=== PATIENT | male | born 1960 | race Caucasian/White ===

== ENCOUNTER 2018-11-13 03:57 | Emergency (ER) | payer MEDICAID ==
[~2018-11-13] VITALS: Ht 188 cm; Wt 113.4 kg
[~2018-11-13 03:57] MED LIST: ALB5IS NEB
[2018-11-13 04:48] VITALS: BP 128/75
[2018-11-13] MEDS ORDERED: methylPREDNISolone SOD SUCC 125 MG/2 ML VL IV ONE (05:00)
[2018-11-13] MEDS ORDERED: cefTRIAXone 1GM/50ML D5W 50 ML IV ONE (05:00)
[2018-11-13 05:26] LABS: Basophils # (auto) 0.1 uL; Basophils % (auto) 0.5 % (0.0-2.0); Eosinophils # (auto) 0.5 uL; Eosinophils % (auto) 4.2 % (0.0-7.0); Hematocrit 42.6 % (41.0-53.0); Hemoglobin 14.1 g/dL (13.5-17.5); Lymphocytes # (auto) 1.2 uL; Lymphocytes % (auto) 9.2 % (10.0-50.0); Mean Corpuscular Hemoglobin 29.3 pg (28.0-32.0); Mean Corpuscular Hgb Conc. 33.1 g/dL (32.0-36.0); Mean Corpuscular Volume 88.5 fL (80.0-100.0); Monocytes # (auto) 1.2 uL; Monocytes % (auto) 9.3 % (0.0-12.0); Neutrophils # (auto) 9.9 uL; Neutrophils % (auto) 76.8 % (37.0-80.0); Platelet Count (auto) 257 10^3/uL (140-450); Red Blood Cells 4.81 10^6/uL (4.5-5.90); Red Cell Distribution Width 13.9 % (11.8-14.3); White Blood Cell 12.9 10^3/uL (4.4-10.8)
[2018-11-13 05:37] LABS: Albumin 2.8 g/dL (3.4-5.0); BUN/Creatinine Ratio 13.9; Calcium 7.7 mg/dL (8.5-10.1); Potassium 3.7 mmol/L (3.5-5.1)
[2018-11-13 05:41] LABS: Bilirubin, Total 0.3 mg/dL (0.2-1.0); Total Protein 6.9 g/dL (6.4-8.2)
[2018-11-13] MEDS ORDERED: IPRATROPIUM BROM 0.5 MG/2.5ML INH SOL NEB ONE (06:00)
== END 2018-11-13 06:40 | disposition home or self-care (01) ==
LOC: ER 03:57 → EDBD 03:57 → ER 06:40
DX: J44.9 Chronic obstructive pulmonary disease, unspecified (principal); I27.20 Pulmonary hypertension, unspecified; Z87.891 Personal history of nicotine dependence
CPT/HCPCS: 36415; 71045; 80053; 83880; 84484; 85025; 94640; 96365; 96375; 99284; J0696; J2930; J7644

== ENCOUNTER 2018-12-04 23:49 | Inpatient (IN) | payer MEDICAID | END 2018-12-10 18:50 | disposition home or self-care (01) | LOC: TELE 12-05 04:52 → TELE-WESTW 12-05 15:09 → ER 23:49 | DX: J44.1 Chronic obstructive pulmonary disease with (acute) exacerbation (principal); I27.20 Pulmonary hypertension, unspecified; E44.0 Moderate protein-calorie malnutrition; I11.0 Hypertensive heart disease with heart failure; I50.9 Heart failure, unspecified; R06.03 Acute respiratory distress ==

== ENCOUNTER 2019-11-30 02:49 | Emergency (ER) | payer MEDICAID ==
[~2019-11-30] VITALS: Ht 182.9 cm; Wt 104.3 kg
[~2019-11-30 02:49] MED LIST changes: +FURO40TA4 PO; +IPR002IS NEB; +LEVO250T19 PO
[2019-11-30] MEDS ORDERED: IPRATROPIUM BROM 0.5 MG/2.5ML INH SOL ONE (02:54)
[2019-11-30] MEDS ORDERED: ALBUTEROL SULF 2.5 MG/0.5ML(0.5%) NEB SOLN ONE (02:54)
[2019-11-30] MEDS ORDERED: IPRATROPIUM BROM 0.5 MG/2.5ML INH SOL NEB ONE (03:15)
[2019-11-30] MEDS ORDERED: ALBUTEROL SULF 2.5 MG/0.5ML(0.5%) NEB SOLN NEB ONE (03:15)
[2019-11-30 03:29] LABS: Basophils # (auto) 0.1 10 ^3/uL (0-0.2); Basophils % (auto) 0.8 % (0.0-2.0); Eosinophils # (auto) 0.6 10 ^3/uL (0-0.8); Eosinophils % (auto) 4.4 % (0.0-7.0); Hematocrit 43.3 % (41.0-53.0); Hemoglobin 14.3 g/dL (13.5-17.5); Lymphocytes # (auto) 1.6 10 ^3/uL (0.4-5.4); Lymphocytes % (auto) 12.9 % (10.0-50.0); Mean Corpuscular Hemoglobin 28.9 pg (28.0-32.0); Mean Corpuscular Volume 87.5 fL (80.0-100.0); Monocytes # (auto) 1.2 10 ^3/uL (0-1.3); Monocytes % (auto) 9.2 % (0.0-12.0); Neutrophils # (auto) 9.3 10 ^3/uL (1.6-8.6); Neutrophils % (auto) 72.7 % (37.0-80.0); Nucleated Red Blood Cells % 0.1 %; Platelet Count (auto) 297 10^3/uL (140-450); Red Blood Cells 4.95 10^6/uL (4.5-5.90); Red Cell Distribution Width 13.9 % (11.8-14.3); White Blood Cell 12.8 10^3/uL (4.4-10.8)
[2019-11-30 03:55] LABS: Albumin 2.6 g/dL (3.4-5.0); Anion Gap 2 (5-15); Blood Urea Nitrogen 11 mg/dL (7-18); Calcium 7.7 mg/dL (8.5-10.1); Carbon Dioxide 32 mmol/L (21-32); Chloride 107 mmol/L (98-107); Glucose 106 mg/dL (74-106); Magnesium 2.3 mg/dL (1.6-2.6); Potassium 4.4 mmol/L (3.5-5.1); Sodium 141 mmol/L (136-145)
[2019-11-30] MEDS ORDERED: methylPREDNISolone SOD SUCC 125 MG/2 ML VL IV ONE (04:00)
[2019-11-30 04:02] LABS: Alanine Aminotransferase 17 U/L (16-61); Alkaline Phosphatase 115 U/L (45-117); Aspartate Aminotransferase 15 U/L (15-37); BUN/Creatinine Ratio 12.8; Bilirubin, Total 0.3 mg/dL (0.2-1.0); GFR African American 117 mL/min; GFR Non-African American 97 mL/min
[2019-11-30 09:15] VITALS: BP 107/68
== END 2019-11-30 09:59 | disposition home or self-care (01) ==
LOC: EDBD 02:49 → ER 02:50
DX: J20.9 Acute bronchitis, unspecified (principal); J44.0 Chronic obstructive pulmonary disease with (acute) lower respiratory infection; I10 Essential (primary) hypertension
CPT/HCPCS: 36415; 71045; 80053; 83605; 83735; 83880; 84484; 85025; 87040; 87804; 93005; 94644; 96374; 99285; J2930; J7644

== ENCOUNTER 2020-02-12 08:53 | Inpatient (IN) | payer MEDICAID ==
[~2020-02-12] VITALS: Ht 188 cm; Wt 110.4 kg
[2020-02-12] MEDS ORDERED: methylPREDNISolone SOD SUCC 125 MG/2 ML VL ONE (09:33)
[2020-02-12] MEDS ORDERED: ALBUTEROL SULF 2.5 MG/0.5ML(0.5%) NEB SOLN NEB ONE ×2 (09:45→11:30)
[2020-02-12] MEDS ORDERED: IPRATROPIUM BROM 0.5 MG/2.5ML INH SOL NEB ONE ×2 (09:45→11:30)
[2020-02-12] MEDS ORDERED: methylPREDNISolone SOD SUCC 125 MG/2 ML VL IV ONE (09:45)
[2020-02-12 09:48] LABS: Basophils # (auto) 0.1 10 ^3/uL (0-0.2); Basophils % (auto) 1.1 % (0.0-2.0); Eosinophils # (auto) 0.2 10 ^3/uL (0-0.8); Eosinophils % (auto) 2.1 % (0.0-7.0); Hematocrit 46.9 % (41.0-53.0); Hemoglobin 15.3 g/dL (13.5-17.5); Lymphocytes # (auto) 1.9 10 ^3/uL (0.4-5.4); Lymphocytes % (auto) 18.3 % (10.0-50.0); Mean Corpuscular Hemoglobin 29.5 pg (28.0-32.0); Mean Corpuscular Hgb Conc. 32.6 g/dL (32.0-36.0); Mean Corpuscular Volume 90.3 fL (80.0-100.0); Monocytes # (auto) 0.5 10 ^3/uL (0-1.3); Monocytes % (auto) 4.3 % (0.0-12.0); Neutrophils # (auto) 7.8 10 ^3/uL (1.6-8.6); Neutrophils % (auto) 74.2 % (37.0-80.0); Nucleated Red Blood Cells % 0.1 %; Platelet Count (auto) 289 10^3/uL (140-450); Red Blood Cells 5.19 10^6/uL (4.5-5.90); Red Cell Distribution Width 14.7 % (11.8-14.3); White Blood Cell 10.5 10^3/uL (4.4-10.8)
[2020-02-12 10:03] LABS: INR 1.01 (0.9-1.15); Partial Thromboplastin Time 26.9 sec (23.64-32.05)
[2020-02-12 10:08] LABS: Albumin 2.4 g/dL (3.4-5.0); Anion Gap 6 (5-15); Blood Urea Nitrogen 16 mg/dL (7-18); Calcium 6.6 mg/dL (8.5-10.1); Carbon Dioxide 27 mmol/L (21-32); Chloride 109 mmol/L (98-107); Glucose 94 mg/dL (74-106); Potassium 4.4 mmol/L (3.5-5.1); Sodium 142 mmol/L (136-145)
[2020-02-12 10:10] LABS: Lactic Acid w/Reflex 2.6 mmol/L (0.4-2.0)
[2020-02-12 10:13] LABS: Alanine Aminotransferase 16 U/L (16-61); Alkaline Phosphatase 112 U/L (45-117); Aspartate Aminotransferase 14 U/L (15-37); BUN/Creatinine Ratio 17.4; Bilirubin, Total 0.1 mg/dL (0.2-1.0); GFR African American 109 mL/min; GFR Non-African American 90 mL/min; Total Protein 6.3 g/dL (6.4-8.2)
[2020-02-12] MEDS ORDERED: cefTRIAXone 1GM/50ML D5W 50 ML IV ONE ×2 (11:30→12:15)
[2020-02-12] MEDS ORDERED: AZITHROMYCIN 500MG/ 250ML 250 ML IV ONE (11:30)
[2020-02-12] MEDS ORDERED: NITROGLYCERIN 0.4 MG SL TAB SL PRN (12:00)
[2020-02-12] MEDS ORDERED: ONDANSETRON HCL 4 MG/2 ML VIAL IV PRN (12:00)
[2020-02-12] MEDS ORDERED: MORPHINE SULF INJ 2 MG/ML SYRINGE 1ML IV PRN ×2 (12:00)
[2020-02-12] MEDS ORDERED: hydrALAZINE HCL 20 MG/ML VL IV PRN (12:00)
[2020-02-12] MEDS ORDERED: HYDROcodone-ACET 5/325MG TAB PO PRN (12:00)
[2020-02-12] MEDS ORDERED: ACETAMINOPHEN 500 MG TAB PO PRN (12:00)
[2020-02-12] MEDS ORDERED: methylPREDNISolone SOD SUCC 125 MG/2 ML VL IV SCH ×2 (12:15)
[2020-02-12] MEDS ORDERED: FUROSEMIDE 20 MG/2 ML VIAL IV ONE (12:15)
[2020-02-12] MEDS ORDERED: FAMOTIDINE 20 MG TAB PO ONE (12:15)
--- NOTE | 2020-02-12 13:47 | NUR ---
Telemetry admit from ER: NOEL NEWTON admitted to Telemetry unit after SBAR received. Patient oriented to KURTIS CHURCH, RN primary RN, unit, room, bed, and unit policies regarding patient care and visiting hours. Patient now on continuous telemetry monitoring, tele box # [id number] and telemetry reading on arrival to unit is ST . Patient placed on bedside oxygen 3 LPM, and encouraged to call if they need something. All questions and concerns addressed, patient verbalized understanding.
[2020-02-12 13:50] VITALS: BP 121/85
[2020-02-12] MEDS: ALBUTEROL SULF 2.5 MG/0.5ML(0.5%) NEB SOLN NEB SCH ×3 (13:59→21:54)
[2020-02-12] MEDS: IPRATROPIUM BROM 0.5 MG/2.5ML INH SOL NEB SCH ×3 (13:59→21:54)
[2020-02-12 14:01] VITALS: BP 121/85
--- NOTE | 2020-02-12 15:59 | NUR ---
PATIENT REFUSED FULL SKIN ASSESSMENT. PATIENT EDUCATED ON NEED FOR SKIN ASSESSMENT, PATIENT REFUSED.
[2020-02-12 16:47] VITALS: BP 130/88
--- NOTE | 2020-02-12 19:15 | NUR ---
CLOSING NOTE: Patient resting in bed on 5 LPM NC. No S/S of pain or distress at this time. Care endorsed to NOC RN.
[2020-02-12 21:43] VITALS: BP 146/95
[2020-02-12] MEDS: BUDESONIDE (INHALATION) 0.5 MG/2 ML NEB NEB SCH (21:54)
[2020-02-12] MEDS: methylPREDNISolone SOD SUCC 125 MG/2 ML VL IV SCH (22:08)
--- NOTE | 2020-02-12 23:16 | NUR ---
OPENING NOTE Received report from day shift RN. Patient is A&O X's 4 with no s/s of distress noted and reports no pain. Patient is receiving 5L of humidified O2 via N.C. Patient's O2 saturation is currently between 95-97%. Educated patient on POC and to use call light when in need of assistance and for help ambulating to bathroom. Patient verbalized understanding. Bed is in lowest/locked position with side rails up X's 2 and HOB elevated. Call light is within reach of patient. Bed alarm is on. Will continue care. Addendum: 02/12/20 at 2320 by ADRIAN HOPPER RN RN time of opening note: [id number]
[2020-02-13] MEDS: guaiFENesin-DM 100/10mg/5ml SYR PO PRN ×2 (00:59→18:10)
--- NOTE | 2020-02-13 01:13 | NUR ---
SHORTNESS OF BREATH Patient reporting shortness of breath at this time. It was precipitated when patient sat up on edge of bed to urinate and began to cough a lot. Patient saturation is 95-97% on 5L N.C. When patient begins to cough, O2% decreases to about 92% then will increase back up within a minute. Patient is requesting to remain sitting at edge of bed. Bedside table was placed in front of patient and call light is within reach of patient. Educated patient to call me if needed and to call me before getting up. Patient verbalized understanding. Specimen cup given to patient for sputum sample. Will continue care.
--- NOTE | 2020-02-13 01:25 | NUR ---
REASSESSMENT Patient remains sitting at edge of bed. Patient no longer appears in any distress and demonstrates less coughing at this time. RR is at 20. Patient states that he is good at this time. O2 remaining at 95% and above.
--- NOTE | 2020-02-13 01:41 | NUR ---
ASSESSMENT Patient is now resting in bed with HOB elevated. No distress is seen. Patient's O2 is at 97% and HR at 99. Will continue care.
[2020-02-13 05:00] VITALS: BP 140/99
[2020-02-13 05:36] LABS: Basophils # (auto) 0 10 ^3/uL (0-0.2); Basophils % (auto) 0.1 % (0.0-2.0); Eosinophils # (auto) 0 10 ^3/uL (0-0.8); Hematocrit 49.6 % (41.0-53.0); Hemoglobin 16.7 g/dL (13.5-17.5); Lymphocytes # (auto) 0.7 10 ^3/uL (0.4-5.4); Lymphocytes % (auto) 6.6 % (10.0-50.0); Mean Corpuscular Hemoglobin 30.2 pg (28.0-32.0); Mean Corpuscular Hgb Conc. 33.7 g/dL (32.0-36.0); Mean Corpuscular Volume 89.5 fL (80.0-100.0); Monocytes # (auto) 0.2 10 ^3/uL (0-1.3); Monocytes % (auto) 1.4 % (0.0-12.0); Neutrophils % (auto) 91.9 % (37.0-80.0); Nucleated Red Blood Cells % 0.1 %; Platelet Count (auto) 273 10^3/uL (140-450); Red Blood Cells 5.54 10^6/uL (4.5-5.90); Red Cell Distribution Width 14.7 % (11.8-14.3); White Blood Cell 10.9 10^3/uL (4.4-10.8)
[2020-02-13 05:54] LABS: BUN/Creatinine Ratio 21.6; Calcium 7.5 mg/dL (8.5-10.1); Potassium 4.4 mmol/L (3.5-5.1)
[2020-02-13] MEDS: ALBUTEROL SULF 2.5 MG/0.5ML(0.5%) NEB SOLN NEB SCH ×5 (06:08→22:26)
[2020-02-13] MEDS: IPRATROPIUM BROM 0.5 MG/2.5ML INH SOL NEB SCH ×5 (06:08→22:25)
--- NOTE | 2020-02-13 06:36 | NUR ---
RESPIRATORY CULTURE SENT TO LAB
--- NOTE | 2020-02-13 07:41 | NUR ---
Opening Note Assumed pt care from NOC RN. Pt is a/ox4 with no s/s of distress. Pt is currently sitting upright in bed eating breakfast on 4L via NC. Mild tachypnea noted. Discussed POC with pt and pending pulmonology consult; pt verbalized understanding. Safety measures maintained with call light within reach, bed in lowest position and side rails up. Will continue to monitor.
[2020-02-13] MEDS: cefTRIAXone 1GM/50ML D5W 50 ML IV SCH (08:30)
[2020-02-13 09:00] VITALS: BP 135/87
[2020-02-13] MEDS: AZITHROMYCIN 500MG/ 250ML 250 ML IV SCH (09:08)
[2020-02-13] MEDS: FAMOTIDINE 20 MG TAB PO SCH (09:08)
[2020-02-13] MEDS: methylPREDNISolone SOD SUCC 125 MG/2 ML VL IV SCH (09:08)
[2020-02-13] MEDS: FUROSEMIDE 20 MG/2 ML VIAL IV SCH (09:08)
[2020-02-13] MEDS: BUDESONIDE (INHALATION) 0.5 MG/2 ML NEB NEB SCH ×2 (10:17→22:25)
[2020-02-13 13:00] VITALS: BP 142/92
--- NOTE | 2020-02-13 13:15 | NUR ---
Dr Enrique at Bedside MD to see pt. Discussed POC with pt. No new orders at this time. Will continue to monitor.
[2020-02-13] MEDS ORDERED: methylPREDNISolone SOD SUCC 40 MG/ML VL IV ONE (13:30)
[2020-02-13] MEDS ORDERED: methylPREDNISolone SOD SUCC 125 MG/2 ML VL IV ONE (13:30)
[2020-02-13 16:47] VITALS: BP 129/89
[2020-02-13] MEDS: Ensure HIGH Protein Chocolate 8oz Bottle PO SCH (17:45)
--- NOTE | 2020-02-13 18:04 | NUR ---
Pt Requests Breathing Treatment Pt states that he is having trouble breathing. Pt is currently tachypnea on 4l via NC. Raised pt's HOB to 90 degrees, encouraged deep breathing. Paged RT for scheduled breathing treatment. Will continue to monitor.
--- NOTE | 2020-02-13 19:00 | NUR ---
OPENING NOTE Received report from day shift RN. Patient is currently resting with HOB elevated. No s/s of distress. Patient is receiving 6L O2 via N.C. Will educate patient on POC. Call light is within reach of patient. Bed is in lowest/locked position with side rails up X's 2. Will continue care.
[2020-02-13] MEDS: methylPREDNISolone SOD SUCC 40 MG/ML VL IV SCH (21:33)
[2020-02-13 22:00] VITALS: BP 131/88
[2020-02-14] MEDS: guaiFENesin-DM 100/10mg/5ml SYR PO PRN ×2 (00:52→23:52)
--- NOTE | 2020-02-14 01:41 | NUR ---
SHORTNESS OF BREATH Patient reported some SOB while coughing. Upon assessment, patient was not in any distress and stopped coughing. HOB was up and elevated. Patient encouraged to deep breathe. O2 saturation was at 98% on 6L N.C. Patient reported feeling better. Educated patient to call again if needed. Patient verbalized understanding. Will continue care.
[2020-02-14 05:00] VITALS: BP 133/87
[2020-02-14 05:44] LABS: Basophils # (auto) 0 10 ^3/uL (0-0.2); Basophils % (auto) 0.1 % (0.0-2.0); Eosinophils # (auto) 0 10 ^3/uL (0-0.8); Hematocrit 47.6 % (41.0-53.0); Hemoglobin 15.7 g/dL (13.5-17.5); Lymphocytes # (auto) 0.7 10 ^3/uL (0.4-5.4); Lymphocytes % (auto) 4.4 % (10.0-50.0); Mean Corpuscular Hemoglobin 29.8 pg (28.0-32.0); Mean Corpuscular Hgb Conc. 32.9 g/dL (32.0-36.0); Mean Corpuscular Volume 90.5 fL (80.0-100.0); Monocytes # (auto) 0.3 10 ^3/uL (0-1.3); Monocytes % (auto) 1.9 % (0.0-12.0); Neutrophils # (auto) 14.7 10 ^3/uL (1.6-8.6); Neutrophils % (auto) 93.6 % (37.0-80.0); Nucleated Red Blood Cells % 0.1 %; Platelet Count (auto) 233 10^3/uL (140-450); Red Blood Cells 5.26 10^6/uL (4.5-5.90); Red Cell Distribution Width 14.5 % (11.8-14.3); White Blood Cell 15.7 10^3/uL (4.4-10.8)
[2020-02-14 06:01] LABS: Calcium 7.3 mg/dL (8.5-10.1); Potassium 4.4 mmol/L (3.5-5.1)
[2020-02-14 06:03] LABS: BUN/Creatinine Ratio 31.6
[2020-02-14] MEDS: IPRATROPIUM BROM 0.5 MG/2.5ML INH SOL NEB SCH ×5 (06:31→22:04)
[2020-02-14] MEDS: BUDESONIDE (INHALATION) 0.5 MG/2 ML NEB NEB SCH ×2 (06:32→18:55)
[2020-02-14] MEDS: ALBUTEROL SULF 2.5 MG/0.5ML(0.5%) NEB SOLN NEB SCH ×5 (06:32→22:04)
--- NOTE | 2020-02-14 07:47 | NUR ---
Opening Note Assumed pt care from NOC RN. Pt is a/ox4 with no s/s of distress. Pt is mildly tachypnea, currently on 5L via NC. Raise pt's HOB to 90 degrees and encouraged deep breathing. Discussed POC with pt; pt verbalized understanding. Safety measures maintained with call light within reach, bed in lowest position and side rails up. Will continue to monitor.
[2020-02-14] MEDS: Ensure HIGH Protein Chocolate 8oz Bottle PO SCH ×3 (08:02→17:52)
[2020-02-14] MEDS: cefTRIAXone 1GM/50ML D5W 50 ML IV SCH (08:22)
[2020-02-14 08:45] VITALS: BP 122/79
[2020-02-14] MEDS: methylPREDNISolone SOD SUCC 40 MG/ML VL IV SCH ×2 (09:22→21:26)
[2020-02-14] MEDS: FUROSEMIDE 20 MG/2 ML VIAL IV SCH (09:22)
[2020-02-14] MEDS: AZITHROMYCIN 500MG/ 250ML 250 ML IV SCH (09:23)
[2020-02-14] MEDS: FAMOTIDINE 20 MG TAB PO SCH (09:23)
--- NOTE | 2020-02-14 11:09 | NUR ---
IV Insertion and Removal 20G inserted to pt's R wrist. One attempt made. Clean/sterile technique used. Pt tolerated well. 20G to pt's R AC removed due to infiltration. Catheter was removed intact, site is asymptotic, pressure was applied to site for 3 minutes with gauze. Pt instructed to keep dressing on for 30 minutes.
[2020-02-14 12:34] VITALS: BP 126/79
--- NOTE | 2020-02-14 14:54 | NUR ---
Dr Enrique at Bedside MD to see pt. states that he will order an ABG to see if pt qualifies for home O2. also requests that due to pt's limited transportation, he would need his prescriptions sent to [facility] before d/c. Will notify NOC RN to pass to day RN.
--- NOTE | 2020-02-14 15:06 | NUR ---
D/C Planning Per pt's request and limited access to transportation, please fill prescriptions in [facility] for pt to [place] before d/c.
--- NOTE | 2020-02-14 15:24 | NUR ---
Assessment Patient is a 59-year old male who is alert and oriented. Prior to admission patient lived in a mobile home with a friend and functioned independently. Patient can care for his own ADLs. Advised patient there is a Social Service consult for homeless and transportation. Patient stated he is not homeless and is happy with the life he has. Offered patient with information regarding [employer]. Patient refused resource stating if he must pay for transportation he prefers to walk. Per patient he has no problem walking to his destination. Per patient he will return to his prior living arrangements post discharge and will need a Taxi Voucher. Informed patient he has a right to participate in all discharge planning. Patient verbalized understanding and agreed to discharge plan home. Addendum: 02/14/20 at 1526 by MARIA DEL CARMEN THOMAS Amended: Links added.
[2020-02-14 16:36] VITALS: BP 125/77
--- NOTE | 2020-02-14 18:41 | NUR ---
Shortness of Breath Pt states that he is having difficulty breathing after eating dinner. Raised HOB to high fowlers, pt is currently on 5L via NC at 98%. Paged RT for scheduled breathing treatment. Will continue to monitor.
--- NOTE | 2020-02-14 19:25 | NUR ---
OPENING NOTE Received report from day shift RN. Patient is A&O X's 4 with no s/s of distress and reports no pain. HOB is elevated to high fowlers and is receiving 5L via NC. Educated patient on POC and to use call light when in need of assistance. Patient verbalized understanding. Bed is in lowest/locked position with side rails up X's 2 and call light is within reach of patient. Will continue care.
[2020-02-14 22:00] VITALS: BP 131/94
[2020-02-15 05:20] VITALS: BP 116/87
[2020-02-15 05:50] LABS: Basophils # (auto) 0 10 ^3/uL (0-0.2); Basophils % (auto) 0.2 % (0.0-2.0); Eosinophils # (auto) 0 10 ^3/uL (0-0.8); Hematocrit 46.9 % (41.0-53.0); Hemoglobin 15.5 g/dL (13.5-17.5); Lymphocytes # (auto) 0.6 10 ^3/uL (0.4-5.4); Mean Corpuscular Hemoglobin 29.8 pg (28.0-32.0); Mean Corpuscular Hgb Conc. 33.1 g/dL (32.0-36.0); Mean Corpuscular Volume 90.2 fL (80.0-100.0); Monocytes # (auto) 0.4 10 ^3/uL (0-1.3); Monocytes % (auto) 2.6 % (0.0-12.0); Neutrophils # (auto) 13.9 10 ^3/uL (1.6-8.6); Neutrophils % (auto) 93.2 % (37.0-80.0); Nucleated Red Blood Cells % 0.3 %; Platelet Count (auto) 227 10^3/uL (140-450); Red Blood Cells 5.21 10^6/uL (4.5-5.90); Red Cell Distribution Width 14.4 % (11.8-14.3); White Blood Cell 14.9 10^3/uL (4.4-10.8)
[2020-02-15 06:07] LABS: Potassium 4.4 mmol/L (3.5-5.1)
[2020-02-15 06:18] LABS: BUN/Creatinine Ratio 40.3; Calcium 7.4 mg/dL (8.5-10.1)
[2020-02-15] MEDS: ALBUTEROL SULF 2.5 MG/0.5ML(0.5%) NEB SOLN NEB SCH ×4 (06:32→18:24)
[2020-02-15] MEDS: IPRATROPIUM BROM 0.5 MG/2.5ML INH SOL NEB SCH ×4 (06:32→18:24)
[2020-02-15] MEDS: BUDESONIDE (INHALATION) 0.5 MG/2 ML NEB NEB SCH ×2 (07:29→18:24)
--- NOTE | 2020-02-15 07:39 | NUR ---
OPENING SHIFT NOTE Assumed care of patient. PT is awake and alert. No S/S of distress/SOB. Bed is in low and locked position. Justin light within reach. Instructed on POC and to call for assist PRN, will continue to monitor for changes Q1hr and PRN.
[2020-02-15 09:00] VITALS: BP 131/87
[2020-02-15] MEDS ORDERED: AZITHROMYCIN 250 MG TAB PO SCH (10:00)
[2020-02-15] MEDS: cefTRIAXone 1GM/50ML D5W 50 ML IV SCH (10:11)
[2020-02-15] MEDS: methylPREDNISolone SOD SUCC 40 MG/ML VL IV SCH (10:11)
[2020-02-15] MEDS: Ensure HIGH Protein Chocolate 8oz Bottle PO SCH ×3 (10:11→18:30)
[2020-02-15] MEDS: FAMOTIDINE 20 MG TAB PO SCH (10:11)
[2020-02-15] MEDS: FUROSEMIDE 20 MG/2 ML VIAL IV SCH (10:11)
--- NOTE | 2020-02-15 11:15 | NUR ---
Respiratory note: DR GANT CALLED, AND MADE AWARE OF HOME O2 QUALIFICATION ABG RESULT OF PO2 VALUE 39.7. RN, AND BOTH MADE AWARE. PT PLACED BACK ON 5L NC. SPO2 95% ON 5LNC. WILL CONTINUE TO MONITOR PT.
[2020-02-15 13:00] VITALS: BP 118/79
--- NOTE | 2020-02-15 13:06 | NUR ---
Nutrition Assessment Notes Please refer to link for full assessment notes. Est Energy needs: [id number] kcals (17-20 kcal/kgBW) Est Protein needs: 132-177 gms/day (1.2-1.6 gm/kgBW) d/t respiratory distress Will continue to monitor and reassess prn. Addendum: 02/15/20 at [address] Amended: Links added.
[2020-02-15] MEDS ORDERED: FUROSEMIDE 20 MG/2 ML VIAL IV ONE (13:15)
[2020-02-15] MEDS ORDERED: POTASSIUM CHL 20 Meq TABLET PO ONE (13:15)
[2020-02-15 13:30] VITALS: BP 131/87
--- NOTE | 2020-02-15 14:00 | NUR ---
Respiratory note: PT REFUSED MEDNE[facility] TX. RN MADE AWARE. PT STATED HE WANTS AN ALBUTEROL MDI TO BE ORDERED BY HIS DR. HE STATED THAT HE PREFERS THE MDI, OVER MEDNEB TX. RN IS CALLING DR TO MODIFY ORDER. WILL CONTINUE TO MONITOR PT.
[2020-02-15 14:08] VITALS: BP 131/87
--- NOTE | 2020-02-15 14:22 | NUR ---
PHONED MARIA DEL CARMEN FROM [employer] HEARING OFFICER REGARDING HOME O2 DELIVERY. STATED SHE WOULD LET ME KNOW WHEN THAT IS SET UP. WILL PROCEED WITH DISCHARGE WHEN HOME O2 IS SET.
--- NOTE | 2020-02-15 17:09 | NUR ---
D/C Planning Per SS consult for home O2 and nebulizer. Faxed clinical information to [facility] requesting for equipment to be deliver to bedside and [facility] requesting authorization. Obtain authorization from [facility] [id number]. Per Marina with [facility] ) DME will be deliver to bedside between 17:30-19:00. Informed RN Will.
--- NOTE | 2020-02-15 18:48 | NUR ---
PT AWAITING DELIVERY OF HOME O2 TO HOSPITAL. SS STATED HOME O2 WOULD BE DELIVERED BY 1900. WILL ENDORSE DISCHARGE TO NIGHT NURSE.
--- NOTE | 2020-02-15 19:45 | NUR ---
Spoke with [facility] regarding delivery of Home O2 equipment. She stated that she would talk to her forklift driver and give me a call back.
--- NOTE | 2020-02-15 20:10 | NUR ---
Pts Home o2 equipment delivered and taken to bedside.
--- NOTE | 2020-02-15 20:15 | NUR ---
Called number on taxis voucher for patients ride home. ETA 15 minutes.
--- NOTE | 2020-02-15 20:40 | NUR ---
Patient discharged Teaching packet given to patient. Iv and tele box not present. Instructed patient on how to make follow up appointment. Pt verbalized understanding. Patient wheeled out to taxi via wheelchair. Patient showed no S/S of distress. Patient loaded himself into taxi van. All O2 equipment and pt belongings loaded into van.
== END 2020-02-15 20:40 | disposition home or self-care (01) | DRG 720 ==
LOC: ER 08:53 → EDBD 08:53 → TELE 08:54 → TELE-WESTW 14:20
PROVIDERS: ADMIT Nurse Practitioner Acute Care; ATTEND Internal Medicine
DX: A41.9 Sepsis, unspecified organism (principal); J96.21 Acute and chronic respiratory failure with hypoxia; E44.0 Moderate protein-calorie malnutrition; J18.9 Pneumonia, unspecified organism; I11.0 Hypertensive heart disease with heart failure; E87.2 Acidosis; I27.20 Pulmonary hypertension, unspecified; E83.51 Hypocalcemia; I50.32 Chronic diastolic (congestive) heart failure; J45.902 Unspecified asthma with status asthmaticus; J44.0 Chronic obstructive pulmonary disease with (acute) lower respiratory infection; J44.1 Chronic obstructive pulmonary disease with (acute) exacerbation; E66.9 Obesity, unspecified; Z68.31 Body mass index [BMI] 31.0-31.9, adult; Z79.899 Other long term (current) drug therapy; Z80.0 Family history of malignant neoplasm of digestive organs; Z80.3 Family history of malignant neoplasm of breast; Z80.7 Family history of other malignant neoplasms of lymphoid, hematopoietic and related tissues; Z71.6 Tobacco abuse counseling; F17.210 Nicotine dependence, cigarettes, uncomplicated; E88.09 Other disorders of plasma-protein metabolism, not elsewhere classified
CPT/HCPCS: 36415; 36600; 71045; 80048; 80053; 82805; 83605; 83735; 83880; 84484; 85025; 85610; 85730; 87040; 87070; 87205; 93005; 94640; 96365; 96368; 96375; G0378; J0696

== ENCOUNTER 2020-04-28 02:44 | Inpatient (IN) | payer MEDICAID ==
[~2020-04-28] VITALS: Ht 188 cm; Wt 111.4 kg
[~2020-04-28 02:44] MED LIST changes: -LEVO250T19 PO
[2020-04-28] MEDS ORDERED: DOXYCYCLINE 100MG/250ML 250 ML IV ONE (03:30)
[2020-04-28] MEDS ORDERED: DexAMETHasone SOD PHOS 10MG/1ML VIAL INJ IV ONE (03:30)
[2020-04-28] MEDS ORDERED: ACETAMINOPHEN 500 MG TAB PO ONE (03:30)
[2020-04-28] MEDS ORDERED: SODIUM CHLORIDE 0.9% 500 ML IV ONE (04:00)
[2020-04-28 04:03] LABS: Basophils # (auto) 0.1 10 ^3/uL (0-0.2); Basophils % (auto) 0.8 % (0.0-2.0); Eosinophils # (auto) 0.3 10 ^3/uL (0-0.8); Eosinophils % (auto) 2.2 % (0.0-7.0); Hemoglobin 15.3 g/dL (13.5-17.5); Lymphocytes # (auto) 2.4 10 ^3/uL (0.4-5.4); Lymphocytes % (auto) 17.1 % (10.0-50.0); Mean Corpuscular Hemoglobin 29.4 pg (28.0-32.0); Mean Corpuscular Hgb Conc. 33.2 g/dL (32.0-36.0); Mean Corpuscular Volume 88.4 fL (80.0-100.0); Monocytes # (auto) 1.1 10 ^3/uL (0-1.3); Monocytes % (auto) 7.9 % (0.0-12.0); Neutrophils # (auto) 10.2 10 ^3/uL (1.6-8.6); Nucleated Red Blood Cells % 0.1 %; Platelet Count (auto) 319 10^3/uL (140-450); Red Blood Cells 5.21 10^6/uL (4.5-5.90); Red Cell Distribution Width 13.8 % (11.8-14.3); White Blood Cell 14.2 10^3/uL (4.4-10.8)
[2020-04-28] MEDS ORDERED: IPRATROPIUM BROM 0.5 MG/2.5ML INH SOL NEB ONE (04:15)
[2020-04-28] MEDS ORDERED: ALBUTEROL SULF 2.5 MG/0.5ML(0.5%) NEB SOLN NEB ONE (04:15)
[2020-04-28 04:23] LABS: INR 0.97 (0.9-1.15); Partial Thromboplastin Time 26.3 sec (23.0-31.2)
[2020-04-28 04:26] LABS: Albumin 2.8 g/dL (3.4-5.0); Anion Gap 6 (5-15); BUN/Creatinine Ratio 26.8; Blood Urea Nitrogen 19 mg/dL (7-18); Calcium 7.6 mg/dL (8.5-10.1); Carbon Dioxide 30 mmol/L (21-32); Chloride 104 mmol/L (98-107); GFR African American 147 mL/min; GFR Non-African American 121 mL/min; Glucose 93 mg/dL (74-106); Sodium 140 mmol/L (136-145)
[2020-04-28 04:32] LABS: Alanine Aminotransferase 17 U/L (16-61); Alkaline Phosphatase 115 U/L (45-117); Aspartate Aminotransferase 19 U/L (15-37); Bilirubin, Total 0.3 mg/dL (0.2-1.0); Total Protein 7.2 g/dL (6.4-8.2)
[2020-04-28 04:42] LABS: Lactic Acid w/Reflex 2.1 mmol/L (0.4-2.0)
[2020-04-28] MEDS ORDERED: LORazepam 2MG/ML-1ML VIAL IV ONE (05:00)
[2020-04-28 06:57] VITALS: BP 131/83
[2020-04-28] MEDS ORDERED: MORPHINE SULF INJ 2 MG/ML SYRINGE 1ML IV PRN (07:30)
[2020-04-28] MEDS ORDERED: DOCUSATE SOD 100 MG CAP PO PRN (07:30)
[2020-04-28] MEDS ORDERED: LORazepam 0.5 MG TAB PO PRN (07:30)
[2020-04-28] MEDS ORDERED: HYDROcodone-ACET 5/325MG TAB PO PRN (07:30)
[2020-04-28] MEDS ORDERED: ALBUTEROL SULF 2.5 MG/0.5ML(0.5%) NEB SOLN NEB PRN (07:30)
[2020-04-28] MEDS ORDERED: IPRATROPIUM BROM 0.5 MG/2.5ML INH SOL NEB PRN (07:30)
[2020-04-28] MEDS ORDERED: ONDANSETRON HCL 4 MG/2 ML VIAL IV PRN (07:30)
[2020-04-28] MEDS ORDERED: ACETAMINOPHEN 500 MG TAB PO PRN (07:30)
[2020-04-28] MEDS: DOXYCYCLINE 100 MG TAB/CAP PO SCH ×2 (09:02→22:36)
[2020-04-28] MEDS: ENOXAPARIN SOD 40 MG/0.4 ML SYRINGE SC SCH (09:20)
[2020-04-28] MEDS ORDERED: ZINC SULFATE 220mg CAP or TAB PO SCH (10:00)
[2020-04-28] MEDS ORDERED: DexAMETHasone SOD PHOS 10MG/1ML VIAL INJ IV SCH (10:00)
[2020-04-28] MEDS ORDERED: ASCORBIC ACID 1,000 MG TAB PO SCH (10:00)
[2020-04-28 10:08] VITALS: BP 130/79
[2020-04-28] MEDS ORDERED: ALBUTEROL SULF HFA 90MCG INH 200DOSE IN SCH (14:00)
[2020-04-28 17:00] VITALS: BP 130/82
[2020-04-28 17:31] VITALS: BP 130/82
[2020-04-28] MEDS ORDERED: guaiFENesin-CODEINE Liq 5 ML UD PO PRN (18:00)
[2020-04-28 18:49] LABS: Amphetamine Screen, Urine POSITIVE (NEGATIVE); Barbiturate Scree,Urine NEGATIVE (NEGATIVE); Benzodiazephine Screen, Urine NEGATIVE (NEGATIVE); Cannabinoid Screen, Urine NEGATIVE (NEGATIVE); Cocaine Screen, Urine NEGATIVE (NEGATIVE); Opiate Scree,Urine NEGATIVE (NEGATIVE); Phencyclidine Screen, Urine NEGATIVE (NEGATIVE)
[2020-04-28] MEDS: methylPREDNISolone SOD SUCC 40 MG/ML VL IV SCH (19:15)
[2020-04-28] MEDS: FOLIC ACID 1 MG, MULTIPLE VITAMIN 10 ML, MAGNESIUM SULF SDV 50% 8 MEQ, THIAMINE INJ 100... INJ SCH ×5 (19:24)
[2020-04-28 19:28] LABS: Urine Amorphous Crystal FEW /hpf (None Seen); Urine Bacteria NONE SEEN /hpf (None Seen); Urine Blood Negative /uL (Negative); Urine Mucus FEW (None Seen); Urine Specific Gravity 1.029 (1.001-1.035); Urine WBC 5 /hpf (0 - 3)
[2020-04-28] MEDS: IPRATROPIUM BROM 0.5 MG/2.5ML INH SOL NEB SCH ×2 (19:33→21:57)
[2020-04-28] MEDS: BUDESONIDE (INHALATION) 0.5 MG/2 ML NEB NEB SCH (19:33)
[2020-04-28] MEDS: ALBUTEROL SULF 2.5 MG/0.5ML(0.5%) NEB SOLN NEB SCH ×2 (19:33→21:57)
[2020-04-28 22:00] VITALS: BP 122/87
[2020-04-28] MEDS: FAMOTIDINE 20 MG TAB PO SCH (22:36)
[2020-04-29] MEDS: methylPREDNISolone SOD SUCC 40 MG/ML VL IV SCH ×5 (00:17→23:11)
[2020-04-29] MEDS: IPRATROPIUM BROM 0.5 MG/2.5ML INH SOL NEB SCH ×6 (02:00→22:26)
[2020-04-29 05:00] VITALS: BP 117/80
[2020-04-29] MEDS: ALBUTEROL SULF 2.5 MG/0.5ML(0.5%) NEB SOLN NEB SCH ×5 (06:00→22:26)
[2020-04-29 09:00] VITALS: BP 113/72
[2020-04-29] MEDS: ENOXAPARIN SOD 40 MG/0.4 ML SYRINGE SC SCH (10:03)
[2020-04-29] MEDS: DOXYCYCLINE 100 MG TAB/CAP PO SCH ×2 (10:03→21:24)
[2020-04-29] MEDS: FAMOTIDINE 20 MG TAB PO SCH ×2 (10:03→21:24)
[2020-04-29 13:00] VITALS: BP 137/71
[2020-04-29] MEDS: FOLIC ACID 1 MG, MULTIPLE VITAMIN 10 ML, MAGNESIUM SULF SDV 50% 8 MEQ, THIAMINE INJ 100... INJ SCH ×5 (13:43)
[2020-04-29] MEDS: BUDESONIDE (INHALATION) 0.5 MG/2 ML NEB NEB SCH ×2 (16:15→22:26)
[2020-04-29 17:00] VITALS: BP 96/60
[2020-04-29 22:00] VITALS: BP 114/76
[2020-04-30] MEDS: methylPREDNISolone SOD SUCC 40 MG/ML VL IV SCH ×3 (05:24→18:06)
[2020-04-30] MEDS: BUDESONIDE (INHALATION) 0.5 MG/2 ML NEB NEB SCH (06:23)
[2020-04-30] MEDS: ALBUTEROL SULF 2.5 MG/0.5ML(0.5%) NEB SOLN NEB SCH ×4 (06:23→18:25)
[2020-04-30] MEDS: IPRATROPIUM BROM 0.5 MG/2.5ML INH SOL NEB SCH ×4 (06:23→18:25)
[2020-04-30 06:26] VITALS: BP 110/69
[2020-04-30 07:02] LABS: Basophils # (auto) 0 10 ^3/uL (0-0.2); Basophils % (auto) 0.1 % (0.0-2.0); Eosinophils # (auto) 0 10 ^3/uL (0-0.8); Hematocrit 44.1 % (41.0-53.0); Hemoglobin 14.3 g/dL (13.5-17.5); Lymphocytes # (auto) 0.8 10 ^3/uL (0.4-5.4); Lymphocytes % (auto) 5.2 % (10.0-50.0); Mean Corpuscular Hemoglobin 29.3 pg (28.0-32.0); Mean Corpuscular Hgb Conc. 32.4 g/dL (32.0-36.0); Mean Corpuscular Volume 90.2 fL (80.0-100.0); Monocytes # (auto) 0.5 10 ^3/uL (0-1.3); Monocytes % (auto) 3.6 % (0.0-12.0); Neutrophils # (auto) 13.5 10 ^3/uL (1.6-8.6); Neutrophils % (auto) 91.1 % (37.0-80.0); Platelet Count (auto) 260 10^3/uL (140-450); Red Blood Cells 4.89 10^6/uL (4.5-5.90); White Blood Cell 14.8 10^3/uL (4.4-10.8)
[2020-04-30 07:41] LABS: Potassium 4.5 mmol/L (3.5-5.1)
[2020-04-30 07:50] LABS: BUN/Creatinine Ratio 27.1; Calcium 7.6 mg/dL (8.5-10.1)
[2020-04-30 08:30] VITALS: BP 119/73
[2020-04-30 09:00] VITALS: BP 119/73
[2020-04-30] MEDS: FAMOTIDINE 20 MG TAB PO SCH (09:48)
[2020-04-30] MEDS: DOXYCYCLINE 100 MG TAB/CAP PO SCH (09:48)
[2020-04-30] MEDS: ENOXAPARIN SOD 40 MG/0.4 ML SYRINGE SC SCH (12:47)
[2020-04-30] MEDS: FOLIC ACID 1 MG, MULTIPLE VITAMIN 10 ML, MAGNESIUM SULF SDV 50% 8 MEQ, THIAMINE INJ 100... INJ SCH ×5 (12:58)
[2020-04-30 13:00] VITALS: BP 109/77
[2020-04-30] MEDS ORDERED: BUDE0.5S IN (16:11)
[2020-04-30] MEDS ORDERED: FAMO-12 PO (16:11)
[2020-04-30] MEDS ORDERED: PRED20TA2 PO (16:11)
[2020-04-30] MEDS ORDERED: DOX100T PO (16:11)
[2020-04-30] MEDS ORDERED: IPRA0.00 IN (16:11)
[2020-04-30 16:25] VITALS: BP 109/73
[2020-04-30 17:00] VITALS: BP 118/72
== END 2020-04-30 19:15 | disposition home or self-care (01) | DRG 133 ==
LOC: EDBD 02:44 → ER 02:44 → OVERFLOW 02:45 → CENTRAL 14:15
PROVIDERS: ADMIT Hospitalist; ATTEND Hospitalist
PROC: 5A09357 Assistance with Respiratory Ventilation, Less than 24 Consecutive Hours, Continuous Positive Airway Pressure (ICD-10-PCS; 2020-04-28)
PROC: 5A09357 Assistance with Respiratory Ventilation, Less than 24 Consecutive Hours, Continuous Positive Airway Pressure (ICD-10-PCS; principal; 2020-04-29)
DX: J96.21 Acute and chronic respiratory failure with hypoxia (principal); J44.1 Chronic obstructive pulmonary disease with (acute) exacerbation; I50.9 Heart failure, unspecified; J18.9 Pneumonia, unspecified organism; J20.9 Acute bronchitis, unspecified; I11.0 Hypertensive heart disease with heart failure; J44.0 Chronic obstructive pulmonary disease with (acute) lower respiratory infection; E66.9 Obesity, unspecified; J45.902 Unspecified asthma with status asthmaticus; J98.11 Atelectasis; F15.10 Other stimulant abuse, uncomplicated; F10.129 Alcohol abuse with intoxication, unspecified; Z68.31 Body mass index [BMI] 31.0-31.9, adult; Z79.899 Other long term (current) drug therapy; Z80.0 Family history of malignant neoplasm of digestive organs; Z80.3 Family history of malignant neoplasm of breast; Z80.42 Family history of malignant neoplasm of prostate; Z80.7 Family history of other malignant neoplasms of lymphoid, hematopoietic and related tissues; Z99.81 Dependence on supplemental oxygen; Z87.891 Personal history of nicotine dependence; Z80.6 Family history of leukemia; R65.10 Systemic inflammatory response syndrome (SIRS) of non-infectious origin without acute organ dysfunction; Z20.828 Contact with and (suspected) exposure to other viral communicable diseases; Y90.2 Blood alcohol level of 40-59 mg/100 ml
CPT/HCPCS: 36415; 36600; 71045; 80048; 80053; 80307; 80320; 81001; 82805; 83605; 83735; 83880; 84484; 85025; 85610; 85730; 87040; 87070; 87804; 87880; 93005; 93306; 94640; 94644; 94660; 94760; 96365; 96366; 96372; 96375; G0378; J1100; J3490

== ENCOUNTER 2021-04-02 18:05 | Inpatient (IN) | payer MEDICAID ==
[~2021-04-02] VITALS: Ht 188 cm; Wt 115.5 kg
[~2021-04-02 18:05] MED LIST changes: +BUDE0.5S IN; +DOX100T PO; +FAMO-12 PO; +IPRA0.00 IN; +PRED20TA2 PO
[2021-04-02] MEDS ORDERED: methylPREDNISolone SOD SUCC 125 MG/2 ML VL IV ONE (18:45)
[2021-04-02] MEDS ORDERED: FUROSEMIDE 40 MG/4 ML VIAL IV ONE (18:45)
[2021-04-02 19:21] LABS: Basophils # (auto) 0.1 10 ^3/uL (0-0.2); Basophils % (auto) 0.8 % (0.0-2.0); Eosinophils # (auto) 0.4 10 ^3/uL (0-0.8); Eosinophils % (auto) 2.9 % (0.0-7.0); Hematocrit 43.1 % (41.0-53.0); Hemoglobin 14.2 g/dL (13.5-17.5); Lymphocytes # (auto) 2.2 10 ^3/uL (0.4-5.4); Lymphocytes % (auto) 17.4 % (10.0-50.0); Mean Corpuscular Hemoglobin 28.2 pg (28.0-32.0); Mean Corpuscular Volume 85.5 fL (80.0-100.0); Neutrophils # (auto) 8.8 10 ^3/uL (1.6-8.6); Neutrophils % (auto) 70.9 % (37.0-80.0); Red Blood Cells 5.05 10^6/uL (4.5-5.90); Red Cell Distribution Width 13.5 % (11.8-14.3); White Blood Cell 12.5 10^3/uL (4.4-10.8)
[2021-04-02 19:31] LABS: Albumin 2.4 g/dL (3.4-5.0); Anion Gap 3 (5-15); Blood Urea Nitrogen 13 mg/dL (7-18); Calcium 8.2 mg/dL (8.5-10.1); Carbon Dioxide 28 mmol/L (21-32); Chloride 109 mmol/L (98-107); Glucose 98 mg/dL (74-106); Potassium 4.1 mmol/L (3.5-5.1); Sodium 140 mmol/L (136-145)
[2021-04-02 19:35] LABS: Alanine Aminotransferase 14 U/L (16-61); Alkaline Phosphatase 79 U/L (45-117); Aspartate Aminotransferase 13 U/L (15-37); BUN/Creatinine Ratio 18.8; Bilirubin, Total 0.3 mg/dL (0.2-1.0); GFR African American 151 mL/min; GFR Non-African American 125 mL/min; Total Protein 7.2 g/dL (6.4-8.2)
[2021-04-02] MEDS ORDERED: PIPERACILLIN-TAZOB 3.375GM 100 ML IV ONE (21:00)
[2021-04-02] MEDS ORDERED: IPRATROPIUM BROM 0.5 MG/2.5ML INH SOL NEB ONE (23:00)
[2021-04-02] MEDS ORDERED: ALBUTEROL SULF 2.5 MG/0.5ML(0.5%) NEB SOLN NEB ONE (23:00)
[2021-04-03] MEDS ORDERED: ALBUTEROL SULF 2.5 MG/0.5ML(0.5%) NEB SOLN NEB PRN (00:15)
[2021-04-03] MEDS ORDERED: HYDROcodone-ACET 5/325MG TAB PO PRN (00:15)
[2021-04-03] MEDS ORDERED: NITROGLYCERIN 0.4 MG SL TAB SL PRN (00:15)
[2021-04-03] MEDS ORDERED: IPRATROPIUM BROM 0.5 MG/2.5ML INH SOL NEB PRN (00:15)
[2021-04-03] MEDS ORDERED: MORPHINE SULF INJ 2 MG/ML SYRINGE 1ML IV PRN (00:15)
[2021-04-03] MEDS ORDERED: ONDANSETRON HCL 4 MG/2 ML VIAL IV PRN (00:15)
[2021-04-03] MEDS ORDERED: IOHEXOL 350 MG/ML 100ML IJ ONE (00:34)
[2021-04-03 05:39] VITALS: BP 104/55
[2021-04-03 07:58] VITALS: BP 104/55
[2021-04-03 08:22] LABS: Urine WBC None Seen /hpf (0 - 3)
[2021-04-03 08:38] LABS: Urine Bacteria NONE SEEN /hpf (None Seen); Urine Blood Negative /uL (Negative)
[2021-04-03 08:39] LABS: Urine Specific Gravity > 1.050 (1.001-1.035)
[2021-04-03 09:00] VITALS: BP 99/71
[2021-04-03 09:44] LABS: Basophils # (auto) 0 10 ^3/uL (0-0.2); Basophils % (auto) 0.2 % (0.0-2.0); Eosinophils # (auto) 0 10 ^3/uL (0-0.8); Hemoglobin 13.9 g/dL (13.5-17.5); Lymphocytes # (auto) 0.9 10 ^3/uL (0.4-5.4); Lymphocytes % (auto) 9.1 % (10.0-50.0); Mean Corpuscular Hemoglobin 28.1 pg (28.0-32.0); Mean Corpuscular Volume 85.1 fL (80.0-100.0); Monocytes # (auto) 0.1 10 ^3/uL (0-1.3); Monocytes % (auto) 1.3 % (0.0-12.0); Neutrophils # (auto) 9.1 10 ^3/uL (1.6-8.6); Neutrophils % (auto) 89.4 % (37.0-80.0); Red Blood Cells 4.94 10^6/uL (4.5-5.90); Red Cell Distribution Width 13.8 % (11.8-14.3); White Blood Cell 10.2 10^3/uL (4.4-10.8)
[2021-04-03] MEDS ORDERED: ENOXAPARIN SOD 40 MG/0.4 ML SYRINGE SC SCH (10:00)
[2021-04-03] MEDS ORDERED: cefTRIAXone 1GM/50ML D5W 50 ML IV SCH (10:00)
[2021-04-03] MEDS ORDERED: predniSONE 20 MG TAB PO SCH (10:00)
[2021-04-03] MEDS ORDERED: AZITHROMYCIN 500MG/ 250ML 250 ML IV SCH (10:00)
[2021-04-03 10:43] LABS: Potassium 4.2 mmol/L (3.5-5.1)
[2021-04-03 11:11] LABS: Albumin 2.4 g/dL (3.4-5.0); BUN/Creatinine Ratio 21.2; Bilirubin, Total 0.2 mg/dL (0.2-1.0); Calcium 8.1 mg/dL (8.5-10.1); Total Protein 7.3 g/dL (6.4-8.2)
[2021-04-03] MEDS ORDERED: POTA-180 PO ×2 (12:03→17:56)
[2021-04-03 12:33] VITALS: BP 99/54
[2021-04-03] MEDS: IPRATROPIUM BROM 0.5 MG/2.5ML INH SOL NEB SCH ×2 (14:24→19:29)
[2021-04-03] MEDS: ALBUTEROL SULF 2.5 MG/0.5ML(0.5%) NEB SOLN NEB SCH ×2 (14:25→19:29)
[2021-04-03 17:00] VITALS: BP 96/67
[2021-04-03] MEDS ORDERED: ALB5IS NEB (17:56)
[2021-04-03] MEDS ORDERED: LEVO750T8 PO (17:56)
[2021-04-03] MEDS ORDERED: IPRA0.00 IN (17:56)
[2021-04-03] MEDS ORDERED: PRED20TA2 PO (17:56)
[2021-04-03] MEDS ORDERED: FURO40TA4 PO (17:56)
== END 2021-04-03 21:00 | disposition home or self-care (01) | DRG 133 ==
LOC: EDBD 18:05 → ER 18:08 → TELE 04-03 00:06 → TELE-EAST 04-03 04:30
PROVIDERS: ADMIT Hospitalist; ATTEND Hospitalist
DX: J96.21 Acute and chronic respiratory failure with hypoxia (principal); J18.9 Pneumonia, unspecified organism; I11.0 Hypertensive heart disease with heart failure; J44.0 Chronic obstructive pulmonary disease with (acute) lower respiratory infection; I50.9 Heart failure, unspecified; Z99.81 Dependence on supplemental oxygen; J44.1 Chronic obstructive pulmonary disease with (acute) exacerbation; E66.9 Obesity, unspecified; D72.829 Elevated white blood cell count, unspecified; Z20.822 Contact with and (suspected) exposure to COVID-19; Z68.32 Body mass index [BMI] 32.0-32.9, adult; Z80.0 Family history of malignant neoplasm of digestive organs; Z80.3 Family history of malignant neoplasm of breast; Z80.7 Family history of other malignant neoplasms of lymphoid, hematopoietic and related tissues; Z87.01 Personal history of pneumonia (recurrent); Z87.891 Personal history of nicotine dependence; Z91.14 Patient's other noncompliance with medication regimen
CPT/HCPCS: 36415; 71045; 80053; 81001; 83605; 83880; 84484; 85025; 85379; 87040; 87426; 93005; 94640; 96365; 96366; 96375; G0378; J0696; J2543

== ENCOUNTER 2024-04-26 08:44 | Inpatient (IN) | payer MEDICAID ==
[~2024-04-26] VITALS: Ht 180.3 cm; Wt 118.7 kg
[2024-04-26] VITALS (14 sets, daily range): BP systolic 106–126; BP diastolic 66–79; PULSE 79–95; RESP 16–22; TEMP 98–98.8; O2SAT 88–98
[~2024-04-26 08:44] MED LIST changes: -BUDE0.5S IN; -DOX100T PO; -FAMO-12 PO; -IPR002IS NEB; +LEVO750T8 PO; +POTA-180 PO
[2024-04-26] MEDS: IPRATROPIUM BROM 0.5 MG/2.5ML INH SOL NEB ONE ×2 (09:23→13:29)
[2024-04-26] MEDS: ALBUTEROL SULF 2.5 MG/0.5ML(0.5%) NEB SOLN NEB ONE ×2 (09:23→13:29)
[2024-04-26] MEDS: MORPHINE SULFATE 4 MG/ML SYR/VIAL IV ONE (09:37)
[2024-04-26] MEDS: FUROSEMIDE 40 MG/4 ML VIAL IV ONE (09:37)
[2024-04-26] MEDS: ASPirin 325 MG TAB PO ONE (09:37)
[2024-04-26] MEDS: AZITHROMYCIN 250 MG TAB PO ONE (09:38)
[2024-04-26 10:40] LABS: Triglycerides 63 mg/dL (< 150)
[2024-04-26 10:41] LABS: LDL Cholesterol 38 mg/dL (< 100)
[2024-04-26] MEDS: MAGNESIUM SULFATE 1GM/100ML 100 ML IV SCH (10:41)
[2024-04-26 10:42] LABS: Cholesterol 95 mg/dL (< 200); HDL Cholesterol 42 mg/dL (40-59)
[2024-04-26 11:22] LABS: Basophils # (auto) 0.1 10 ^3/uL (0-0.2); Basophils % (auto) 0.8 % (0.0-2.0); Eosinophils # (auto) 0.1 10 ^3/uL (0-0.8); Eosinophils % (auto) 1.9 % (0.0-7.0); Hematocrit 37.7 % (41.0-53.0); Hemoglobin 11.8 g/dL (13.5-17.5); Lymphocytes # (auto) 1.3 10 ^3/uL (0.4-5.4); Lymphocytes % (auto) 16.2 % (10.0-50.0); Mean Corpuscular Hgb Conc. 31.3 g/dL (32.0-36.0); Mean Corpuscular Volume 95.8 fL (80.0-100.0); Monocytes # (auto) 1.3 10 ^3/uL (0-1.3); Neutrophils # (auto) 5.1 10 ^3/uL (1.6-8.6); Neutrophils % (auto) 64.1 % (37.0-80.0); Nucleated Red Blood Cells % 0.2 %; Platelet Count (auto) 216 10^3/uL (140-450); Red Blood Cells 3.93 10^6/uL (4.5-5.90); Red Cell Distribution Width 15.7 % (11.8-14.3); White Blood Cell 7.9 10^3/uL (4.4-10.8)
[2024-04-26 11:49] LABS: INR 1.05 (0.9-1.15); Prothrombin Time 11.1 sec (9.3-11.8)
[2024-04-26] MEDS ORDERED: HYDROcodone-ACET 5/325MG TAB PO PRN (13:15)
[2024-04-26] MEDS: HYDROcodone-ACET 5/325MG TAB PO ONE (13:15)
[2024-04-26] MEDS ORDERED: ONDANSETRON HCL 4 MG/2 ML VIAL IV PRN ×2 (13:30→14:30)
[2024-04-26] MEDS ORDERED: NITROGLYCERIN 0.4 MG SL TAB SL PRN ×2 (13:30)
[2024-04-26] MEDS ORDERED: ACETAMINOPHEN 325 MG TAB PO PRN (13:30)
[2024-04-26 13:42] LABS: Base Excess 18.8 mmol/L (-2.0-2.0)
[2024-04-26] MEDS: methylPREDNISolone SOD SUCC 125 MG/2 ML VL IV SCH (14:00)
[2024-04-26 14:57] LABS: COVID19 ANTIGEN SOFIA FIA NEGATIVE (NEGATIVE); Rapid Influenza A Negative (Negative); Rapid Influenza B Negative (Negative)
[2024-04-26] MEDS: PANTOPRAZOLE 40 MG/10 ML VIAL INJ IV ONE (15:37)
[2024-04-26] MEDS: methylPREDNISolone SOD SUCC 125 MG/2 ML VL IV ONE (15:37)
[2024-04-26] MEDS: chlordiazePOXIDE HCL 25 MG CAP PO SCH (15:37)
[2024-04-26 15:42] LABS: INR 1.06 (0.9-1.15); Prothrombin Time 11.2 sec (9.3-11.8)
[2024-04-26 15:43] LABS: Alanine Aminotransferase 38 U/L (7-40); Albumin 3.4 g/dL (3.2-4.8); Alkaline Phosphatase 85 U/L (46-116); Aspartate Aminotransferase 25 U/L (13-40); BUN/Creatinine Ratio 23.5 (10.0-20.0); Blood Urea Nitrogen 20 mg/dL (9-23); Calcium 9.2 mg/dL (8.7-10.4); Chloride 97 mmol/L (98-107); Glucose 119 mg/dL (74-106); Potassium 4.3 mmol/L (3.5-5.1); Sodium 142 mmol/L (136-145)
[2024-04-26 15:44] LABS: Bilirubin, Total 0.4 mg/dL (0.2-1.0); Total Protein 6.9 g/dL (5.7-8.2)
[2024-04-26 15:50] LABS: Anion Gap 4.99999 (5-15); Carbon Dioxide > 40 mmol/L (20-30)
[2024-04-26 15:52] LABS: Base Excess 18.4 mmol/L (-2.0-2.0)
[2024-04-26] MEDS: IPRATROPIUM BROM 0.5 MG/2.5ML INH SOL NEB PRN (17:39)
[2024-04-26] MEDS: ALBUTEROL SULF 2.5 MG/0.5ML(0.5%) NEB SOLN NEB SCH (17:39)
[2024-04-26] MEDS: acetaZOLAMIDE SODIUM 500 MG VL IV ONE (17:59)
[2024-04-26 19:37] LABS: Base Excess 12.9 mmol/L (-2.0-2.0)
[2024-04-26 21:37] LABS: Base Excess 15.9 mmol/L (-2.0-2.0)
[2024-04-26] MEDS ORDERED: ENOXAPARIN SOD 100 MG/1 ML SYRINGE SC SCH (22:00)
[2024-04-26] MEDS: ATORVASTATIN 20 MG TAB PO SCH (22:17)
[2024-04-26] MEDS: METOPROLOL TARTRATE 25 MG TAB PO SCH (22:17)
[2024-04-26] MEDS: ENOXAPARIN SOD 120 MG/0.8 ML SYRINGE SC SCH (22:17)
[2024-04-26] MEDS: MUPIROCIN 2% OINT 15gm or 22gm FOR MRSA NARES EACHNOSTRI SCH (22:18)
[2024-04-27] VITALS (18 sets, daily range): BP systolic 105–121; BP diastolic 45–76; PULSE 80–148; RESP 16–22; TEMP 98–98.8; O2SAT 89–95
[2024-04-27 01:59] LABS: Base Excess 16.1 mmol/L (-2.0-2.0)
[2024-04-27] MEDS: acetaZOLAMIDE SODIUM 500 MG VL IV SCH (05:48)
[2024-04-27 06:39] LABS: Basophils # (auto) 0 10 ^3/uL (0-0.2); Basophils % (auto) 0.1 % (0.0-2.0); Eosinophils # (auto) 0 10 ^3/uL (0-0.8); Hemoglobin 12.6 g/dL (13.5-17.5); Lymphocytes # (auto) 0.4 10 ^3/uL (0.4-5.4); Lymphocytes % (auto) 6.8 % (10.0-50.0); Mean Corpuscular Hemoglobin 30.8 pg (28.0-32.0); Mean Corpuscular Hgb Conc. 32.2 g/dL (32.0-36.0); Mean Corpuscular Volume 95.7 fL (80.0-100.0); Monocytes # (auto) 0.1 10 ^3/uL (0-1.3); Monocytes % (auto) 1.9 % (0.0-12.0); Neutrophils # (auto) 5.9 10 ^3/uL (1.6-8.6); Neutrophils % (auto) 91.2 % (37.0-80.0); Nucleated Red Blood Cells % 0.2 %; Platelet Count (auto) 230 10^3/uL (140-450); Red Blood Cells 4.07 10^6/uL (4.5-5.90); Red Cell Distribution Width 15.2 % (11.8-14.3); White Blood Cell 6.5 10^3/uL (4.4-10.8)
[2024-04-27 06:49] LABS: Alanine Aminotransferase 32 U/L (7-40); Alkaline Phosphatase 71 U/L (46-116); Aspartate Aminotransferase 24 U/L (13-40); BUN/Creatinine Ratio 25.6 (10.0-20.0); Blood Urea Nitrogen 20 mg/dL (9-23); Calcium 8.9 mg/dL (8.7-10.4); Chloride 99 mmol/L (98-107); Cholesterol 103 mg/dL (< 200); Glucose 166 mg/dL (74-106); LDL Cholesterol 42 mg/dL (< 100); Potassium 5.3 mmol/L (3.5-5.1); Sodium 142 mmol/L (136-145); Triglycerides 56 mg/dL (< 150)
[2024-04-27 06:50] LABS: Bilirubin, Total 0.5 mg/dL (0.2-1.0); HDL Cholesterol 45 mg/dL (40-59); Total Protein 6.3 g/dL (5.7-8.2)
[2024-04-27 07:18] LABS: Base Excess 14.5 mmol/L (-2.0-2.0)
[2024-04-27 07:34] LABS: Anion Gap 2.99999 (5-15)
[2024-04-27 07:38] LABS: Carbon Dioxide > 40 mmol/L (20-30)
[2024-04-27] MEDS ORDERED: ENOXAPARIN SOD 40 MG/0.4 ML SYRINGE SC SCH (10:00)
[2024-04-27] MEDS: FUROSEMIDE 40 MG/4 ML VIAL IV ONE (10:20)
[2024-04-27] MEDS ORDERED: AMIODARONE HCL 200 MG TAB PO ONE (10:30)
[2024-04-27] MEDS: DOCUSATE SOD 100 MG CAP PO SCH (10:30)
[2024-04-27] MEDS: chlordiazePOXIDE HCL 25 MG CAP PO SCH (10:30)
[2024-04-27] MEDS: PANTOPRAZOLE 40 MG/10 ML VIAL INJ IV SCH (10:31)
[2024-04-27] MEDS: AZITHROMYCIN 500MG/ 250ML 250 ML IV SCH (10:31)
[2024-04-27] MEDS: ASPirin 81 mg TAB PO SCH (10:31)
[2024-04-27] MEDS: cefTRIAXone 1GM/50ML D5W 50 ML IV STA (11:18)
[2024-04-27] MEDS: IOHEXOL 350 MG/ML 100ML IJ ONE (12:35)
[2024-04-27] MEDS: NICOTINE 21MG/24 HR TOPICAL PATCH TD STA (14:05)
[2024-04-27] MEDS: SACUBITRIL-VALSARTAN 24mg/26mg TAB PO SCH (21:26)
[2024-04-27] MEDS: methylPREDNISolone SOD SUCC 40 MG/ML VL IV SCH (21:28)
[2024-04-27] MEDS ORDERED: APIXABAN 5 MG TAB PO SCH (22:00)
[2024-04-27] MEDS ORDERED: AMIODARONE HCL 200 MG TAB PO SCH (22:00)
[2024-04-28] VITALS (19 sets, daily range): BP systolic 94–128; BP diastolic 56–70; PULSE 80–107; RESP 16–20; TEMP 90–98.9; O2SAT 88–100
[2024-04-28 06:24] LABS: Basophils # (auto) 0 10 ^3/uL (0-0.2); Eosinophils # (auto) 0 10 ^3/uL (0-0.8); Hematocrit 39.5 % (41.0-53.0); Hemoglobin 12.4 g/dL (13.5-17.5); Lymphocytes # (auto) 0.4 10 ^3/uL (0.4-5.4); Lymphocytes % (auto) 2.7 % (10.0-50.0); Mean Corpuscular Hemoglobin 29.8 pg (28.0-32.0); Mean Corpuscular Hgb Conc. 31.3 g/dL (32.0-36.0); Mean Corpuscular Volume 95.1 fL (80.0-100.0); Monocytes # (auto) 0.6 10 ^3/uL (0-1.3); Monocytes % (auto) 3.9 % (0.0-12.0); Neutrophils # (auto) 13.9 10 ^3/uL (1.6-8.6); Neutrophils % (auto) 93.4 % (37.0-80.0); Platelet Count (auto) 265 10^3/uL (140-450); Red Blood Cells 4.16 10^6/uL (4.5-5.90); Red Cell Distribution Width 15.3 % (11.8-14.3); White Blood Cell 14.9 10^3/uL (4.4-10.8)
[2024-04-28 06:44] LABS: Alanine Aminotransferase 39 U/L (7-40); Alkaline Phosphatase 70 U/L (46-116); BUN/Creatinine Ratio 23.3 (10.0-20.0); Blood Urea Nitrogen 20 mg/dL (9-23); Calcium 8.2 mg/dL (8.7-10.4); Chloride 98 mmol/L (98-107); Glucose 179 mg/dL (74-106); Potassium 4.2 mmol/L (3.5-5.1); Sodium 142 mmol/L (136-145)
[2024-04-28 06:46] LABS: Albumin 2.9 g/dL (3.2-4.8); Aspartate Aminotransferase 34 U/L (13-40)
[2024-04-28 06:47] LABS: Anion Gap 3.99999 (5-15); Bilirubin, Total 0.2 mg/dL (0.2-1.0); Total Protein 6.4 g/dL (5.7-8.2)
[2024-04-28 06:48] LABS: Carbon Dioxide > 40 mmol/L (20-30)
[2024-04-28] MEDS: FUROSEMIDE 40 MG/4 ML VIAL IV SCH (08:30)
[2024-04-28] MEDS: chlordiazePOXIDE HCL 25 MG CAP PO SCH (08:32)
[2024-04-28] MEDS: EMPAGLIFLOZIN 10 MG TAB PO SCH (08:32)
[2024-04-28] MEDS: NICOTINE 21MG/24 HR TOPICAL PATCH TD SCH (08:33)
[2024-04-28] MEDS: cefTRIAXone 1GM/50ML D5W 50 ML IV SCH (09:00)
[2024-04-28] MEDS ORDERED: FUROSEMIDE 40 MG/4 ML VIAL IV SCH (10:00)
[2024-04-28 10:36] LABS: Urine Blood Negative /uL (Negative); Urine Clarity Clear (Clear); Urine Color Light-Yellow (Yellow); Urine Hyaline Cast FEW /lpf (0 - 2); Urine Protein, UAD Negative (Negative); Urine Urobilinogen Normal (Negative); Urine WBC 1 /hpf (0 - 3); Urine pH 5.5 (5.0-9.0)
[2024-04-28 11:12] LABS: Amphetamine Screen, Urine Neg (NEGATIVE)
[2024-04-28 11:14] LABS: Barbiturate Scree,Urine Neg (NEGATIVE); Benzodiazephine Screen, Urine Pos (NEGATIVE); Cocaine Screen, Urine Neg (NEGATIVE)
[2024-04-28 11:15] LABS: Cannabinoid Screen, Urine Neg (NEGATIVE); Opiate Scree,Urine Neg (NEGATIVE); Phencyclidine Screen, Urine Neg (NEGATIVE)
[2024-04-28] MEDS ORDERED: SACU1TAB PO (13:49)
[2024-04-28] MEDS ORDERED: AZITTAB PO (13:49)
[2024-04-28] MEDS ORDERED: MUPI2OIN2 EACHNOSTRI (13:49)
[2024-04-28] MEDS ORDERED: CEPH250C PO (13:49)
[2024-04-28] MEDS ORDERED: ASPI-325 PO (13:49)
[2024-04-28] MEDS ORDERED: PRED20TA2 PO (13:49)
[2024-04-28] MEDS ORDERED: ATOR20TA50 PO (13:49)
[2024-04-28] MEDS ORDERED: EMPA1TAB PO (13:49)
[2024-04-28] MEDS ORDERED: POTA-36 PO (18:27)
[2024-04-28] MEDS ORDERED: FURO1TAB33 PO (18:27)
[2024-04-29] VITALS (58 sets, daily range): BP systolic 75–147; BP diastolic 41–90; PULSE 77–106; RESP 11–24; TEMP 97.7–99.3; O2SAT 88–100
[2024-04-29] MEDS: chlordiazePOXIDE HCL 25 MG CAP PO SCH (06:48)
[2024-04-29 08:00] LABS: Basophils # (auto) 0 10 ^3/uL (0-0.2); Eosinophils # (auto) 0 10 ^3/uL (0-0.8); Hematocrit 43.8 % (41.0-53.0); Hemoglobin 13.6 g/dL (13.5-17.5); Lymphocytes # (auto) 0.5 10 ^3/uL (0.4-5.4); Lymphocytes % (auto) 3.1 % (10.0-50.0); Mean Corpuscular Hgb Conc. 31.1 g/dL (32.0-36.0); Mean Corpuscular Volume 96.5 fL (80.0-100.0); Monocytes # (auto) 0.4 10 ^3/uL (0-1.3); Monocytes % (auto) 2.8 % (0.0-12.0); Neutrophils # (auto) 14.3 10 ^3/uL (1.6-8.6); Neutrophils % (auto) 94.1 % (37.0-80.0); Nucleated Red Blood Cells % 0.1 %; Platelet Count (auto) 307 10^3/uL (140-450); Red Blood Cells 4.54 10^6/uL (4.5-5.90); Red Cell Distribution Width 15.5 % (11.8-14.3); White Blood Cell 15.3 10^3/uL (4.4-10.8)
[2024-04-29 08:10] LABS: Chloride 94 mmol/L (98-107); Potassium 4.7 mmol/L (3.5-5.1); Sodium 139 mmol/L (136-145)
[2024-04-29 08:11] LABS: Calcium 8.3 mg/dL (8.7-10.4)
[2024-04-29 08:16] LABS: Anion Gap 4.99999 (5-15); Blood Urea Nitrogen 25 mg/dL (9-23); Glucose 166 mg/dL (74-106)
[2024-04-29 08:30] LABS: Carbon Dioxide > 40 mmol/L (20-30)
[2024-04-29] MEDS: FUROSEMIDE 40 MG/4 ML VIAL IV SCH (10:00)
[2024-04-29] MEDS: SODIUM CHLORIDE 0.9% 1,000 ML IV STA (11:39)
[2024-04-29] MEDS: SODIUM CHLORIDE 0.9% 250 ML IV ONE (11:39)
[2024-04-29] MEDS: NOREPINEPHRINE 8 MG/250ML KIT 250 ML IV SCH (13:45)
[2024-04-29 13:50] LABS: Base Excess 7.8 mmol/L (-2.0-2.0)
[2024-04-29] MEDS: NOREPINEPHRINE 8 MG/250ML KIT 250 ML IV ONE (13:57)
[2024-04-29 15:24] LABS: Base Excess 15.3 mmol/L (-2.0-2.0)
[2024-04-29] MEDS: ETOMIDATE (2MG/ML) 20ML VIAL IV ONE ×2 (15:38→16:10)
[2024-04-29] MEDS: SUCCINYLCHOLINE CHLORIDE 20 MG/ML 10ML VIAL IV ONE (15:38)
[2024-04-29] MEDS: ROCURONIUM 10MG/ML 10ML VIAL IV ONE ×3 (15:55→16:30)
[2024-04-29] MEDS: fentaNYL Drip 2500mCg/250mlNS 250 ML IV ONE (16:27)
[2024-04-29] MEDS: MIDAZOLAM DRIP 50 mg/50mL 50 ML IV ONE (16:27)
[2024-04-29] MEDS: fentaNYL Drip 2500mCg/250mlNS 250 ML IV SCH (16:30)
[2024-04-29] MEDS: MIDAZOLAM DRIP 50 mg/50mL 50 ML IV SCH (16:31)
[2024-04-29 17:07] LABS: Basophils # (auto) 0 10 ^3/uL (0-0.2); Basophils % (auto) 0.2 % (0.0-2.0); Eosinophils # (auto) 0 10 ^3/uL (0-0.8); Hematocrit 43.6 % (41.0-53.0); Hemoglobin 13.8 g/dL (13.5-17.5); Lymphocytes # (auto) 0.5 10 ^3/uL (0.4-5.4); Lymphocytes % (auto) 2.7 % (10.0-50.0); Mean Corpuscular Hemoglobin 30.4 pg (28.0-32.0); Mean Corpuscular Hgb Conc. 31.6 g/dL (32.0-36.0); Mean Corpuscular Volume 96.3 fL (80.0-100.0); Monocytes # (auto) 1.1 10 ^3/uL (0-1.3); Monocytes % (auto) 6.7 % (0.0-12.0); Neutrophils # (auto) 15.1 10 ^3/uL (1.6-8.6); Neutrophils % (auto) 90.4 % (37.0-80.0); Nucleated Red Blood Cells % 0.1 %; Platelet Count (auto) 350 10^3/uL (140-450); Red Blood Cells 4.52 10^6/uL (4.5-5.90); Red Cell Distribution Width 15.6 % (11.8-14.3); White Blood Cell 16.7 10^3/uL (4.4-10.8)
[2024-04-29 17:25] LABS: Alanine Aminotransferase 44 U/L (7-40); Albumin 3.2 g/dL (3.2-4.8); Alkaline Phosphatase 75 U/L (46-116); Aspartate Aminotransferase 24 U/L (13-40); BUN/Creatinine Ratio 22.4 (10.0-20.0); Blood Urea Nitrogen 32 mg/dL (9-23); Calcium 7.9 mg/dL (8.7-10.4); Chloride 94 mmol/L (98-107); Glucose 186 mg/dL (74-106); Magnesium 1.9 mg/dL (1.6-2.6); Potassium 4.9 mmol/L (3.5-5.1); Sodium 135 mmol/L (136-145)
[2024-04-29 17:26] LABS: Bilirubin, Total 0.2 mg/dL (0.2-1.0); Total Protein 6.9 g/dL (5.7-8.2)
[2024-04-29] MEDS: PROPOFOL 100 ML IV SCH (17:30)
[2024-04-29 17:59] LABS: Anion Gap 0.99999 (5-15)
[2024-04-29 18:03] LABS: Carbon Dioxide > 40 mmol/L (20-30)
[2024-04-29 18:22] LABS: INR 1.03 (0.9-1.15); Prothrombin Time 10.9 sec (9.3-11.8)
[2024-04-29] MEDS: ENOXAPARIN SOD 40 MG/0.4 ML SYRINGE SC ONE (18:27)
[2024-04-29 18:32] LABS: Base Excess 10.8 mmol/L (-2.0-2.0)
[2024-04-29] MEDS: methylPREDNISolone SOD SUCC 40 MG/ML VL IV ONE (19:36)
[2024-04-29] MEDS: IPRATROPIUM BROM 0.5 MG/2.5ML INH SOL NEB SCH (19:59)
[2024-04-29] MEDS: MAGNESIUM SULFATE 1GM/100ML 100 ML IV SCH (22:51)
[2024-04-30] VITALS (109 sets, daily range): BP systolic 85–133; BP diastolic 45–77; PULSE 85–103; RESP 17–40; TEMP 97.5–99.3; O2SAT 5–98
[2024-04-30 04:00] LABS: Basophils # (auto) 0 10 ^3/uL (0-0.2); Basophils % (auto) 0.1 % (0.0-2.0); Eosinophils # (auto) 0 10 ^3/uL (0-0.8); Hematocrit 40.9 % (41.0-53.0); Hemoglobin 13.1 g/dL (13.5-17.5); Lymphocytes # (auto) 0.4 10 ^3/uL (0.4-5.4); Lymphocytes % (auto) 2.6 % (10.0-50.0); Mean Corpuscular Volume 93.9 fL (80.0-100.0); Monocytes # (auto) 0.6 10 ^3/uL (0-1.3); Monocytes % (auto) 4.2 % (0.0-12.0); Neutrophils # (auto) 13.5 10 ^3/uL (1.6-8.6); Neutrophils % (auto) 93.1 % (37.0-80.0); Platelet Count (auto) 285 10^3/uL (140-450); Red Blood Cells 4.35 10^6/uL (4.5-5.90); Red Cell Distribution Width 15.4 % (11.8-14.3); White Blood Cell 14.5 10^3/uL (4.4-10.8)
[2024-04-30 04:21] LABS: Alanine Aminotransferase 35 U/L (7-40); Albumin 2.9 g/dL (3.2-4.8); Alkaline Phosphatase 63 U/L (46-116); Aspartate Aminotransferase 19 U/L (13-40); BUN/Creatinine Ratio 35.4 (10.0-20.0); Blood Urea Nitrogen 34 mg/dL (9-23); Calcium 8.1 mg/dL (8.7-10.4); Chloride 95 mmol/L (98-107); Glucose 213 mg/dL (74-106); Potassium 3.9 mmol/L (3.5-5.1); Sodium 139 mmol/L (136-145)
[2024-04-30 04:22] LABS: Bilirubin, Total 0.5 mg/dL (0.2-1.0); Total Protein 5.8 g/dL (5.7-8.2)
[2024-04-30 04:25] LABS: Anion Gap 3.99999 (5-15); Carbon Dioxide > 40 mmol/L (20-30)
[2024-04-30 07:52] LABS: Base Excess 13.7 mmol/L (-2.0-2.0)
[2024-04-30] MEDS: ENOXAPARIN SOD 40 MG/0.4 ML SYRINGE SC SCH (08:32)
[2024-04-30] MEDS: DOCUSATE ORAL LIQUID 100 MG/10 ML UD GT SCH (17:40)
[2024-04-30] MEDS: ALBUMIN 25% 50 ML IV SCH (17:42)
[2024-04-30] MEDS: POTASSIUM CHL 20MEQ/100ML 100 ML IV ONE (17:57)
[2024-04-30] MEDS: ACCU-CHEK COMFORT CURVE STRIP VI SCH (18:07)
[2024-04-30] MEDS: InsuLIN REG 1unit/0.01ml Soln (100units/ml) SC SCH (18:16)
[2024-05-01] VITALS (108 sets, daily range): BP systolic 92–135; BP diastolic 48–77; PULSE 70–91; RESP 15–20; TEMP 98.4–99.1; O2SAT 92–99
[2024-05-01 04:24] LABS: Basophils # (auto) 0 10 ^3/uL (0-0.2); Basophils % (auto) 0.2 % (0.0-2.0); Eosinophils # (auto) 0 10 ^3/uL (0-0.8); Hematocrit 40.4 % (41.0-53.0); Hemoglobin 12.8 g/dL (13.5-17.5); Lymphocytes # (auto) 0.3 10 ^3/uL (0.4-5.4); Lymphocytes % (auto) 1.9 % (10.0-50.0); Mean Corpuscular Hemoglobin 29.6 pg (28.0-32.0); Mean Corpuscular Hgb Conc. 31.7 g/dL (32.0-36.0); Mean Corpuscular Volume 93.3 fL (80.0-100.0); Monocytes # (auto) 0.8 10 ^3/uL (0-1.3); Monocytes % (auto) 4.5 % (0.0-12.0); Neutrophils # (auto) 16.6 10 ^3/uL (1.6-8.6); Neutrophils % (auto) 93.4 % (37.0-80.0); Platelet Count (auto) 250 10^3/uL (140-450); Red Blood Cells 4.33 10^6/uL (4.5-5.90); Red Cell Distribution Width 15.2 % (11.8-14.3); White Blood Cell 17.7 10^3/uL (4.4-10.8)
[2024-05-01 04:45] LABS: Alanine Aminotransferase 30 U/L (7-40); Alkaline Phosphatase 56 U/L (46-116); BUN/Creatinine Ratio 36.1 (10.0-20.0); Blood Urea Nitrogen 26 mg/dL (9-23); Calcium 8.3 mg/dL (8.7-10.4); Chloride 95 mmol/L (98-107); Glucose 167 mg/dL (74-106); Potassium 3.9 mmol/L (3.5-5.1); Sodium 137 mmol/L (136-145)
[2024-05-01 04:46] LABS: Albumin 3.3 g/dL (3.2-4.8); Aspartate Aminotransferase 19 U/L (13-40)
[2024-05-01 04:47] LABS: Bilirubin, Total 0.8 mg/dL (0.2-1.0); Total Protein 5.9 g/dL (5.7-8.2)
[2024-05-01 05:07] LABS: Anion Gap 1.99999 (5-15)
[2024-05-01 05:08] LABS: Carbon Dioxide > 40 mmol/L (20-30)
[2024-05-01 07:26] LABS: Base Excess 16.1 mmol/L (-2.0-2.0)
[2024-05-01] MEDS: Jevity 1.2 Cal/Fiber 1 Liter GT SCH (15:51)
[2024-05-02] VITALS (83 sets, daily range): BP systolic 92–142; BP diastolic 39–85; PULSE 69–160; RESP 16–20; TEMP 97.3–99; O2SAT 92–100
[2024-05-02 01:33] LABS: Base Excess 15.7 mmol/L (-2.0-2.0)
[2024-05-02 04:28] LABS: Basophils # (auto) 0 10 ^3/uL (0-0.2); Eosinophils # (auto) 0 10 ^3/uL (0-0.8); Hematocrit 41.2 % (41.0-53.0); Hemoglobin 13.1 g/dL (13.5-17.5); Lymphocytes # (auto) 0.8 10 ^3/uL (0.4-5.4); Lymphocytes % (auto) 4.7 % (10.0-50.0); Mean Corpuscular Hemoglobin 29.5 pg (28.0-32.0); Mean Corpuscular Hgb Conc. 31.8 g/dL (32.0-36.0); Mean Corpuscular Volume 92.8 fL (80.0-100.0); Monocytes % (auto) 5.5 % (0.0-12.0); Neutrophils # (auto) 15.9 10 ^3/uL (1.6-8.6); Neutrophils % (auto) 89.8 % (37.0-80.0); Platelet Count (auto) 260 10^3/uL (140-450); Red Blood Cells 4.44 10^6/uL (4.5-5.90); Red Cell Distribution Width 15.5 % (11.8-14.3); White Blood Cell 17.7 10^3/uL (4.4-10.8)
[2024-05-02 04:40] LABS: Chloride 96 mmol/L (98-107); Potassium 3.7 mmol/L (3.5-5.1); Sodium 137 mmol/L (136-145)
[2024-05-02 04:46] LABS: BUN/Creatinine Ratio 43.1 (10.0-20.0); Blood Urea Nitrogen 31 mg/dL (9-23); Glucose 157 mg/dL (74-106)
[2024-05-02 05:06] LABS: Anion Gap 0.99999 (5-15); Carbon Dioxide > 40 mmol/L (20-30)
[2024-05-02 08:04] LABS: Base Excess 13.4 mmol/L (-2.0-2.0)
[2024-05-02] MEDS ORDERED: LIDOCAINE 2%HCL (LOCAL ANESTH.) INJ 20ML MDV ONE (09:05)
[2024-05-02] MEDS ORDERED: LIDOCAINE 2% JELLY 11ml (GLYDO) ONE (09:05)
[2024-05-02] MEDS ORDERED: EPINEPHrine HCL 1 MG/1 ML AMP ONE (09:06)
[2024-05-02] MEDS ORDERED: GLYCOPYRROLATE 0.2 MG/ML 1ML VIAL ONE (09:06)
[2024-05-02] MEDS ORDERED: SODIUM CHLORIDE LOCK 10 ML ONE (09:09)
[2024-05-02] MEDS: methylPREDNISolone SOD SUCC 40 MG/ML VL IV SCH (10:00)
[2024-05-02] MEDS: MIDAZOLAM HCL 5 MG/ML-1ML VIAL ONE (10:19)
[2024-05-02 12:34] LABS: Base Excess 11.2 mmol/L (-2.0-2.0)
[2024-05-02] MEDS: acetaZOLAMIDE SODIUM 500 MG VL IV ONE (13:09)
[2024-05-03] VITALS (103 sets, daily range): BP systolic 89–178; BP diastolic 47–104; PULSE 64–88; RESP 9–22; TEMP 97.5–99.1; O2SAT 90–100
[2024-05-03 04:20] LABS: Basophils # (auto) 0 10 ^3/uL (0-0.2); Basophils % (auto) 0.2 % (0.0-2.0); Eosinophils # (auto) 0.1 10 ^3/uL (0-0.8); Eosinophils % (auto) 0.6 % (0.0-7.0); Hematocrit 40.8 % (41.0-53.0); Hemoglobin 13.1 g/dL (13.5-17.5); Lymphocytes # (auto) 1.9 10 ^3/uL (0.4-5.4); Lymphocytes % (auto) 10.7 % (10.0-50.0); Mean Corpuscular Hemoglobin 29.8 pg (28.0-32.0); Mean Corpuscular Hgb Conc. 32.1 g/dL (32.0-36.0); Mean Corpuscular Volume 92.8 fL (80.0-100.0); Monocytes # (auto) 1.5 10 ^3/uL (0-1.3); Monocytes % (auto) 8.4 % (0.0-12.0); Neutrophils # (auto) 14.5 10 ^3/uL (1.6-8.6); Neutrophils % (auto) 80.1 % (37.0-80.0); Platelet Count (auto) 237 10^3/uL (140-450); Red Cell Distribution Width 15.4 % (11.8-14.3); White Blood Cell 18.1 10^3/uL (4.4-10.8)
[2024-05-03 04:33] LABS: Alanine Aminotransferase 26 U/L (7-40); Alkaline Phosphatase 57 U/L (46-116); Anion Gap 2 (5-15); Aspartate Aminotransferase 20 U/L (13-40); BUN/Creatinine Ratio 39.4 (10.0-20.0); Blood Urea Nitrogen 28 mg/dL (9-23); Calcium 7.5 mg/dL (8.7-10.4); Carbon Dioxide 38 mmol/L (20-30); Chloride 98 mmol/L (98-107); Glucose 108 mg/dL (74-106); Magnesium 1.9 mg/dL (1.6-2.6); Potassium 3.4 mmol/L (3.5-5.1); Sodium 138 mmol/L (136-145)
[2024-05-03 04:35] LABS: Bilirubin, Total 0.5 mg/dL (0.2-1.0); Total Protein 5.6 g/dL (5.7-8.2)
[2024-05-03 08:01] LABS: Base Excess 9.3 mmol/L (-2.0-2.0)
[2024-05-03] MEDS: POTASSIUM CHL 20MEQ/100ML 100 ML IV SCH (08:28)
[2024-05-03] MEDS: FUROSEMIDE 20 MG/2 ML VIAL IV ONE (09:00)
[2024-05-03] MEDS: acetaZOLAMIDE SODIUM 500 MG VL IV ONE (13:21)
[2024-05-04] VITALS (106 sets, daily range): BP systolic 94–141; BP diastolic 48–74; PULSE 60–103; RESP 11–24; TEMP 97.6–98.6; O2SAT 87–100
[2024-05-04 04:10] LABS: Basophils # (auto) 0 10 ^3/uL (0-0.2); Eosinophils # (auto) 0 10 ^3/uL (0-0.8); Eosinophils % (auto) 0.2 % (0.0-7.0); Hematocrit 38.9 % (41.0-53.0); Hemoglobin 12.5 g/dL (13.5-17.5); Lymphocytes % (auto) 7.1 % (10.0-50.0); Mean Corpuscular Hgb Conc. 32.1 g/dL (32.0-36.0); Mean Corpuscular Volume 93.3 fL (80.0-100.0); Monocytes # (auto) 1.1 10 ^3/uL (0-1.3); Monocytes % (auto) 7.5 % (0.0-12.0); Neutrophils # (auto) 12.2 10 ^3/uL (1.6-8.6); Neutrophils % (auto) 85.2 % (37.0-80.0); Platelet Count (auto) 191 10^3/uL (140-450); Red Blood Cells 4.17 10^6/uL (4.5-5.90); Red Cell Distribution Width 15.3 % (11.8-14.3); White Blood Cell 14.3 10^3/uL (4.4-10.8)
[2024-05-04 04:20] LABS: Calcium 8.1 mg/dL (8.7-10.4); Chloride 98 mmol/L (98-107); Potassium 3.4 mmol/L (3.5-5.1); Sodium 138 mmol/L (136-145)
[2024-05-04 04:21] LABS: Anion Gap 2 (5-15); Carbon Dioxide 38 mmol/L (20-30)
[2024-05-04 04:26] LABS: BUN/Creatinine Ratio 41.7 (10.0-20.0); Blood Urea Nitrogen 30 mg/dL (9-23); Glucose 102 mg/dL (74-106)
[2024-05-04 04:27] LABS: Magnesium 2.2 mg/dL (1.6-2.6)
[2024-05-04 07:47] LABS: Base Excess 10.3 mmol/L (-2.0-2.0)
[2024-05-04] MEDS: POTASSIUM CHL 20MEQ/100ML 100 ML IV SCH (08:32)
[2024-05-04 14:23] LABS: Base Excess 8.3 mmol/L (-2.0-2.0)
[2024-05-04 18:22] LABS: Base Excess 6.3 mmol/L (-2.0-2.0)
[2024-05-05] VITALS (60 sets, daily range): BP systolic 106–134; BP diastolic 47–77; PULSE 82–104; RESP 10–28; TEMP 97.8–98.9; O2SAT 90–100
[2024-05-05 04:50] LABS: Basophils # (auto) 0 10 ^3/uL (0-0.2); Eosinophils # (auto) 0.1 10 ^3/uL (0-0.8); Eosinophils % (auto) 0.3 % (0.0-7.0); Hematocrit 40.7 % (41.0-53.0); Lymphocytes # (auto) 1.5 10 ^3/uL (0.4-5.4); Lymphocytes % (auto) 7.3 % (10.0-50.0); Mean Corpuscular Hemoglobin 29.8 pg (28.0-32.0); Mean Corpuscular Hgb Conc. 32.1 g/dL (32.0-36.0); Mean Corpuscular Volume 93.1 fL (80.0-100.0); Monocytes # (auto) 1.7 10 ^3/uL (0-1.3); Monocytes % (auto) 8.3 % (0.0-12.0); Neutrophils # (auto) 17.2 10 ^3/uL (1.6-8.6); Neutrophils % (auto) 84.1 % (37.0-80.0); Platelet Count (auto) 211 10^3/uL (140-450); Red Blood Cells 4.37 10^6/uL (4.5-5.90); Red Cell Distribution Width 15.2 % (11.8-14.3); White Blood Cell 20.4 10^3/uL (4.4-10.8)
[2024-05-05 04:59] LABS: Alanine Aminotransferase 29 U/L (7-40); Albumin 3.2 g/dL (3.2-4.8); Alkaline Phosphatase 61 U/L (46-116); Anion Gap 3 (5-15); Aspartate Aminotransferase 25 U/L (13-40); BUN/Creatinine Ratio 49.1 (10.0-20.0); Bilirubin, Total 0.5 mg/dL (0.2-1.0); Blood Urea Nitrogen 27 mg/dL (9-23); Calcium 8.5 mg/dL (8.7-10.4); Carbon Dioxide 37 mmol/L (20-30); Chloride 100 mmol/L (98-107); Glucose 66 mg/dL (74-106); Magnesium 2.1 mg/dL (1.6-2.6); Potassium 3.5 mmol/L (3.5-5.1); Sodium 140 mmol/L (136-145)
[2024-05-05 05:00] LABS: Total Protein 5.9 g/dL (5.7-8.2)
[2024-05-05] MEDS: DEXTROSE (50%) 50ML SYRG IV PRN (06:12)
[2024-05-05] MEDS: DEXTROSE 10% 1,000 ML IV SCH (09:58)
[2024-05-05] MEDS: LACTULOSE 20Gm/30ML SOLN PO ONE (17:36)
[2024-05-06] VITALS (35 sets, daily range): BP systolic 105–136; BP diastolic 56–75; PULSE 85–98; RESP 14–29; TEMP 98–99.7; O2SAT 93–100
[2024-05-06 04:53] LABS: Basophils # (auto) 0 10 ^3/uL (0-0.2); Basophils % (auto) 0.3 % (0.0-2.0); Eosinophils # (auto) 0.1 10 ^3/uL (0-0.8); Eosinophils % (auto) 0.5 % (0.0-7.0); Hematocrit 40.7 % (41.0-53.0); Hemoglobin 13.1 g/dL (13.5-17.5); Lymphocytes # (auto) 1.4 10 ^3/uL (0.4-5.4); Lymphocytes % (auto) 9.9 % (10.0-50.0); Mean Corpuscular Hemoglobin 29.8 pg (28.0-32.0); Mean Corpuscular Hgb Conc. 32.1 g/dL (32.0-36.0); Mean Corpuscular Volume 92.9 fL (80.0-100.0); Monocytes # (auto) 1.4 10 ^3/uL (0-1.3); Monocytes % (auto) 9.7 % (0.0-12.0); Neutrophils # (auto) 11.4 10 ^3/uL (1.6-8.6); Neutrophils % (auto) 79.6 % (37.0-80.0); Platelet Count (auto) 238 10^3/uL (140-450); Red Blood Cells 4.38 10^6/uL (4.5-5.90); Red Cell Distribution Width 14.5 % (11.8-14.3); White Blood Cell 14.3 10^3/uL (4.4-10.8)
[2024-05-06 05:12] LABS: Alanine Aminotransferase 32 U/L (7-40); Albumin 2.9 g/dL (3.2-4.8); Alkaline Phosphatase 64 U/L (46-116); Aspartate Aminotransferase 24 U/L (13-40); BUN/Creatinine Ratio 34.9 (10.0-20.0); Bilirubin, Total 0.4 mg/dL (0.2-1.0); Blood Urea Nitrogen 22 mg/dL (9-23); Calcium 8.5 mg/dL (8.7-10.4); Chloride 100 mmol/L (98-107); Glucose 114 mg/dL (74-106); Magnesium 1.9 mg/dL (1.6-2.6); Potassium 3.5 mmol/L (3.5-5.1); Sodium 140 mmol/L (136-145); Total Protein 5.6 g/dL (5.7-8.2)
[2024-05-06 05:32] LABS: Anion Gap 0 (5-15); Carbon Dioxide > 40 mmol/L (20-30)
[2024-05-06] MEDS: POTASSIUM CHL 20 Meq TABLET PO ONE (09:40)
[2024-05-06] MEDS: LACTULOSE 20Gm/30ML SOLN PO ONE (12:40)
[2024-05-06] MEDS: METOCLOPRAMIDE HCL 5MG/ml INJ 2ml VIAL IV ONE (12:41)
[2024-05-06] MEDS: FLEET ENEMA(ADULT) 135 ML PR ONE (15:51)
[2024-05-06] MEDS: BUDESONIDE (INHALATION) 0.5 MG/2 ML NEB NEB SCH (22:21)
[2024-05-07] VITALS (38 sets, daily range): BP systolic 85–139; BP diastolic 48–83; PULSE 33–95; RESP 14–30; TEMP 97.9–99.1; O2SAT 89–100
[2024-05-07 06:52] LABS: Basophils # (auto) 0 10 ^3/uL (0-0.2); Eosinophils # (auto) 0.1 10 ^3/uL (0-0.8); Eosinophils % (auto) 0.7 % (0.0-7.0); Hematocrit 30.2 % (41.0-53.0); Hemoglobin 9.7 g/dL (13.5-17.5); Lymphocytes # (auto) 1.8 10 ^3/uL (0.4-5.4); Lymphocytes % (auto) 14.5 % (10.0-50.0); Mean Corpuscular Hemoglobin 30.4 pg (28.0-32.0); Mean Corpuscular Hgb Conc. 32.2 g/dL (32.0-36.0); Mean Corpuscular Volume 94.5 fL (80.0-100.0); Monocytes # (auto) 1.4 10 ^3/uL (0-1.3); Monocytes % (auto) 11.8 % (0.0-12.0); Neutrophils # (auto) 8.9 10 ^3/uL (1.6-8.6); Platelet Count (auto) 190 10^3/uL (140-450); Red Blood Cells 3.19 10^6/uL (4.5-5.90); Red Cell Distribution Width 14.6 % (11.8-14.3); White Blood Cell 12.2 10^3/uL (4.4-10.8)
[2024-05-07 07:06] LABS: Alanine Aminotransferase 20 U/L (7-40); Albumin 2.3 g/dL (3.2-4.8); Alkaline Phosphatase 49 U/L (46-116); Aspartate Aminotransferase 11 U/L (13-40); BUN/Creatinine Ratio 44.7 (10.0-20.0); Bilirubin, Total 0.3 mg/dL (0.2-1.0); Blood Urea Nitrogen 21 mg/dL (9-23); Calcium 6.9 mg/dL (8.7-10.4); Carbon Dioxide 39 mmol/L (20-30); Chloride 107 mmol/L (98-107); Glucose 96 mg/dL (74-106); Magnesium 1.4 mg/dL (1.6-2.6); Potassium 2.9 mmol/L (3.5-5.1); Sodium 141 mmol/L (136-145); Total Protein 4.2 g/dL (5.7-8.2)
[2024-05-07 07:07] LABS: Anion Gap -5 (5-15)
[2024-05-07] MEDS: MAGNESIUM SULFATE 1GM/100ML 100 ML IV SCH (08:34)
[2024-05-07] MEDS: POTASSIUM CHL 20 Meq TABLET PO SCH (08:35)
[2024-05-07 09:04] LABS: % Iron Saturation 35.1 % (20-55)
[2024-05-07 09:20] LABS: Ferritin 232.7 ng/mL (22-322)
[2024-05-07] MEDS: FUROSEMIDE 40 MG TAB PO SCH (09:43)
[2024-05-07] MEDS: EMPAGLIFLOZIN 10 MG TAB PO SCH (09:50)
[2024-05-07] MEDS ORDERED: HYDROcodone-ACET 5/325MG TAB PO PRN (10:30)
[2024-05-07] MEDS: HYDROcodone-ACET 5/325MG TAB ONE (10:35)
[2024-05-07] MEDS: DOCUSATE SOD 100 MG CAP PO SCH (11:00)
[2024-05-07 11:41] LABS: Hematocrit 40.9 % (41.0-53.0); Hemoglobin 12.9 g/dL (13.5-17.5)
[2024-05-07 15:00] LABS: Potassium 4.2 mmol/L (3.5-5.1)
[2024-05-07 15:07] LABS: Magnesium 2.1 mg/dL (1.6-2.6)
[2024-05-08] VITALS (24 sets, daily range): BP systolic 90–149; BP diastolic 40–82; PULSE 79–90; RESP 16–20; TEMP 97.6–98.9; O2SAT 90–100
[2024-05-08 07:09] LABS: Basophils # (auto) 0 10 ^3/uL (0-0.2); Basophils % (auto) 0.2 % (0.0-2.0); Eosinophils # (auto) 0.3 10 ^3/uL (0-0.8); Eosinophils % (auto) 2.2 % (0.0-7.0); Hematocrit 38.6 % (41.0-53.0); Hemoglobin 12.4 g/dL (13.5-17.5); Lymphocytes # (auto) 2.5 10 ^3/uL (0.4-5.4); Lymphocytes % (auto) 20.2 % (10.0-50.0); Mean Corpuscular Hemoglobin 29.9 pg (28.0-32.0); Mean Corpuscular Volume 93.4 fL (80.0-100.0); Monocytes # (auto) 1.1 10 ^3/uL (0-1.3); Monocytes % (auto) 8.9 % (0.0-12.0); Neutrophils # (auto) 8.6 10 ^3/uL (1.6-8.6); Neutrophils % (auto) 68.5 % (37.0-80.0); Platelet Count (auto) 269 10^3/uL (140-450); Red Blood Cells 4.14 10^6/uL (4.5-5.90); Red Cell Distribution Width 14.7 % (11.8-14.3); White Blood Cell 12.5 10^3/uL (4.4-10.8)
[2024-05-08 07:25] LABS: Alanine Aminotransferase 27 U/L (7-40); Alkaline Phosphatase 57 U/L (46-116); BUN/Creatinine Ratio 35.3 (10.0-20.0); Blood Urea Nitrogen 18 mg/dL (9-23); Calcium 8.3 mg/dL (8.7-10.4); Chloride 100 mmol/L (98-107); Glucose 84 mg/dL (74-106); Magnesium 1.9 mg/dL (1.6-2.6); Potassium 4.3 mmol/L (3.5-5.1); Sodium 141 mmol/L (136-145)
[2024-05-08 07:26] LABS: Albumin 2.9 g/dL (3.2-4.8); Aspartate Aminotransferase 16 U/L (13-40); Bilirubin, Total 0.4 mg/dL (0.2-1.0); Total Protein 5.3 g/dL (5.7-8.2)
[2024-05-08 07:27] LABS: Anion Gap 0.99999 (5-15)
[2024-05-08 07:28] LABS: Carbon Dioxide > 40 mmol/L (20-30)
[2024-05-09] VITALS (26 sets, daily range): BP systolic 89–114; BP diastolic 42–82; PULSE 77–104; RESP 16–23; TEMP 97.8–98.4; O2SAT 92–100
[2024-05-09 05:48] LABS: Chloride 103 mmol/L (98-107); Potassium 4.4 mmol/L (3.5-5.1); Sodium 141 mmol/L (136-145)
[2024-05-09 05:49] LABS: Anion Gap 0 (5-15); Carbon Dioxide 38 mmol/L (20-30)
[2024-05-09 05:51] LABS: Basophils # (auto) 0 10 ^3/uL (0-0.2); Basophils % (auto) 0.3 % (0.0-2.0); Eosinophils # (auto) 0.3 10 ^3/uL (0-0.8); Eosinophils % (auto) 2.2 % (0.0-7.0); Hematocrit 38.8 % (41.0-53.0); Hemoglobin 12.4 g/dL (13.5-17.5); Lymphocytes % (auto) 14.9 % (10.0-50.0); Mean Corpuscular Hemoglobin 30.2 pg (28.0-32.0); Mean Corpuscular Volume 94.5 fL (80.0-100.0); Monocytes # (auto) 1.2 10 ^3/uL (0-1.3); Neutrophils # (auto) 9.9 10 ^3/uL (1.6-8.6); Neutrophils % (auto) 73.6 % (37.0-80.0); Platelet Count (auto) 263 10^3/uL (140-450); Red Cell Distribution Width 14.5 % (11.8-14.3); White Blood Cell 13.4 10^3/uL (4.4-10.8)
[2024-05-09 05:54] LABS: BUN/Creatinine Ratio 18.5 (10.0-20.0); Blood Urea Nitrogen 12 mg/dL (9-23); Glucose 126 mg/dL (74-106)
[2024-05-09 10:42] LABS: Folate (Folic Acid) 7.34 ng/mL (>5.38)
[2024-05-09] MEDS ORDERED: ALBUAER3 IN (14:23)
[2024-05-09] MEDS ORDERED: UMEC1AER IN (14:23)
[2024-05-09 15:05] LABS: Base Excess 10.3 mmol/L (-2.0-2.0)
[2024-05-10] VITALS (15 sets, daily range): BP systolic 94–99; BP diastolic 44–58; PULSE 63–94; RESP 16–22; TEMP 98.3–99.5; O2SAT 93–99
== END 2024-05-10 16:18 | disposition home health service (06) | DRG 130 ==
LOC: EDBD 08:44 → ER 08:44 → TELE 13:39 → WEST WING 16:51 → TELE-WESTW 16:52 → ICU WEST 04-29 15:44 → DOU IN ICU 05-06 00:40 → TELE-CENTR 05-07 17:56
PROVIDERS: ADMIT Internal Medicine; ATTEND Internal Medicine
PROC: 5A09357 Assistance with Respiratory Ventilation, Less than 24 Consecutive Hours, Continuous Positive Airway Pressure (ICD-10-PCS; 2024-04-26)
PROC: 5A09357 Assistance with Respiratory Ventilation, Less than 24 Consecutive Hours, Continuous Positive Airway Pressure (ICD-10-PCS; 2024-04-27)
PROC: 0BH17EZ Insertion of Endotracheal Airway into Trachea, Via Natural or Artificial Opening (ICD-10-PCS; principal; 2024-04-29)
PROC: 5A1955Z Respiratory Ventilation, Greater than 96 Consecutive Hours (ICD-10-PCS; 2024-04-29)
PROC: 02HV33Z Insertion of Infusion Device into Superior Vena Cava, Percutaneous Approach (ICD-10-PCS; 2024-04-29)
PROC: 5A09357 Assistance with Respiratory Ventilation, Less than 24 Consecutive Hours, Continuous Positive Airway Pressure (ICD-10-PCS; 2024-04-29)
PROC: 0B968ZZ Drainage of Right Lower Lobe Bronchus, Via Natural or Artificial Opening Endoscopic (ICD-10-PCS; 2024-05-02)
PROC: 5A09357 Assistance with Respiratory Ventilation, Less than 24 Consecutive Hours, Continuous Positive Airway Pressure (ICD-10-PCS; 2024-05-04)
PROC: 5A09357 Assistance with Respiratory Ventilation, Less than 24 Consecutive Hours, Continuous Positive Airway Pressure (ICD-10-PCS; 2024-05-05)
PROC: 5A09357 Assistance with Respiratory Ventilation, Less than 24 Consecutive Hours, Continuous Positive Airway Pressure (ICD-10-PCS; 2024-05-06)
PROC: 5A09357 Assistance with Respiratory Ventilation, Less than 24 Consecutive Hours, Continuous Positive Airway Pressure (ICD-10-PCS; 2024-05-07)
PROC: 5A09357 Assistance with Respiratory Ventilation, Less than 24 Consecutive Hours, Continuous Positive Airway Pressure (ICD-10-PCS; 2024-05-08)
PROC: 5A09357 Assistance with Respiratory Ventilation, Less than 24 Consecutive Hours, Continuous Positive Airway Pressure (ICD-10-PCS; 2024-05-09)
PROC: 5A09357 Assistance with Respiratory Ventilation, Less than 24 Consecutive Hours, Continuous Positive Airway Pressure (ICD-10-PCS; 2024-05-10)
DX: J96.22 Acute and chronic respiratory failure with hypercapnia (principal); N17.0 Acute kidney failure with tubular necrosis; R57.8 Other shock; I50.23 Acute on chronic systolic (congestive) heart failure; J15.69 Pneumonia due to other Gram-negative bacteria; E87.4 Mixed disorder of acid-base balance; E44.1 Mild protein-calorie malnutrition; J15.9 Unspecified bacterial pneumonia; I11.0 Hypertensive heart disease with heart failure; I27.20 Pulmonary hypertension, unspecified; E66.2 Morbid (severe) obesity with alveolar hypoventilation; J96.21 Acute and chronic respiratory failure with hypoxia; J44.0 Chronic obstructive pulmonary disease with (acute) lower respiratory infection; J45.901 Unspecified asthma with (acute) exacerbation; J44.1 Chronic obstructive pulmonary disease with (acute) exacerbation; I47.19 Other supraventricular tachycardia; Z20.822 Contact with and (suspected) exposure to COVID-19; F10.139 Alcohol abuse with withdrawal, unspecified; R73.9 Hyperglycemia, unspecified; F17.210 Nicotine dependence, cigarettes, uncomplicated; I45.10 Unspecified right bundle-branch block; T38.0X5A Adverse effect of glucocorticoids and synthetic analogues, initial encounter; K59.00 Constipation, unspecified; K92.1 Melena; Z80.0 Family history of malignant neoplasm of digestive organs; Z80.3 Family history of malignant neoplasm of breast; Z80.7 Family history of other malignant neoplasms of lymphoid, hematopoietic and related tissues; Z91.199 Patient's noncompliance with other medical treatment and regimen due to unspecified reason; Z68.34 Body mass index [BMI] 34.0-34.9, adult; Z99.81 Dependence on supplemental oxygen; Y92.89 Other specified places as the place of occurrence of the external cause; Y90.9 Presence of alcohol in blood, level not specified
CPT/HCPCS: 36415; 36600; 71045; 71275; 76604; 80048; 80053; 80061; 80307; 80320; 81001; 82270; 82607; 82728; 82746; 82805; 82962; 83036; 83540; 83550; 83605; 83735; 83880; 84132; 84443; 84484; 85014; 85018; 85025; 85610; 86141; 87040; 87070; 87081; 87086; 87205; 87426; 87804; 92610; 93005; 93306; 93925; 93970; 94002; 94003; 94640; 94660; 96365; 96375; 97110; 97163; 97530; G0378; J0171; J0330; J2250; J2470; J2704; J3480; J7060